=== PATIENT | female | born 1965 | race Caucasian/White ===

== ENCOUNTER 2019-12-03 14:18 | Inpatient (IN) | payer MEDICAID, SELFPAY ==
[2019-12-03 14:20] VITALS: BP 170/100; PULSE 104; PULSE 108; RESP 18; TEMP 36.4; O2SAT 98; O2SAT 99; BMI 19.1
--- NOTE | 2019-12-03 14:37 | CT_ITS ---
STUDY: CT ABDOMEN AND PELVIS WITHOUT CONTRAST REASON FOR EXAM: Female, 54 years old. MID TO LOWER BACK PAIN RADIATING TO BACK, N/V X 2 WKS, PREV PANCREATIC CYSTS REMOVED RADIATION DOSAGE (If Supplied By Facility): CTDIvol = ( 6.04 ) mGy, DLP = ( 299 ) mGycm TECHNIQUE: Transaxial images were obtained from the dome of the diaphragm to the symphysis pubis without oral contrast, and without intravenous contrast. Sagittal and coronal images were reconstructed. Individualized dose optimization techniques were used for this CT. COMPARISON: None. FINDINGS: The visualized lung bases are unremarkable. The visualized portions of the heart are within normal limits. The liver is enlarged, and heterogeneous with low-density fatty infiltration. There is also suggestive of infiltrative pattern in the liver concerning for metastasis though this is difficult to fully evaluate without IV contrast. Normal gallbladder and extrahepatic biliary system. Normal spleen. Within the pancreatic head is a worrisome poorly defined hypodense mass measuring 1.4 x 2 cm. Additionally, there is dilatation of the pancreatic duct in the head and mid body of the pancreas though not in the tail. There is a 1.5 cm low-density left adrenal nodule. Given the findings in the liver this should be considered a metastasis until proven otherwise. The right adrenal is unremarkable. No obstructive uropathy, there is a punctate nonobstructing stone in the left kidney measuring 2 mm. Normal visualized stomach. Normal small intestine. Scattered colonic diverticulosis is noted. There is a caliber change in the colon best seen between axial images 122 and 135 and an underlying lesion needs to be excluded. No demonstrated perforation or abscess. The appendix is visualized and appears normal. Appendix best seen on coronal recon image 46 Normal abdominal aorta. Normal inferior vena cava. There is diffuse nonspecific induration of the mesenteric and retroperitoneal fat. Additionally, there are scattered borderline enlarged periaortic lymph nodes the largest seen on axial image 70 measures slightly greater than 1 cm Normal urinary bladder. Uterus is still present, the endometrium cannot be accurately evaluated with CT. No suspicious cystic mass or free fluid. Normal abdominal wall. There are diffuse degenerative changes of the visualized lumbar spine, and pelvis. CT/Abdomen/Pelvis without Cont IMPRESSION: Enlarged fatty liver with infiltrative heterogeneous appearance. This is suggestive of metastasis though without IV contrast is difficult to accurately evaluate. Worrisome 1.4 x 2 cm low-density lesion in the head of the pancreas likely responsible for mild pancreatic ductal dilatation in the head and mid body. Nonspecific but concerning induration of the mesenteric and retroperitoneal fat. There are multiple overlying enlarged retroperitoneal lymph nodes. Suspicious 1.5 cm low-density nodule in the left adrenal gland Colonic diverticulosis with nonspecific submucosal thickening and caliber change at the junction of the distal descending and sigmoid colon, no abscess or perforation noted but these findings are concerning for neoplastic process. Nonobstructing left nephrolithiasis Degenerative bony changes Uterus is still present, the endometrium cannot be accurately evaluated with CT Electronically Signed: Rod Fields MD at 15:28 EDT , Service support ,
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
[2019-12-03] MEDS: Ondansetron 4 MG/2 ML Vial IV ×2 (14:53→19:47)
[2019-12-03] MEDS: Morphine 4 MG/ML Syringe IV (14:53)
[2019-12-03] MEDS: 0.9% Normal Saline 1,000 ML 150 ML IV (14:57)
[2019-12-03 15:10] LABS: Red Blood Cells-Urine 0 SEEN /hpf (0-5)
[2019-12-03 15:13] LABS: Absolute Lymphocyte Count 1.56 X10^3/uL (0.83-4.51); Absolute Neutrophil Count 6.1 X10^3/uL (2.0-7.7); Basophil# 0.07 X10^3/uL; Basophil% 0.8 % (0-1); Eosinophil# 0.06 X10^3/uL; Eosinophils% 0.7 % (0-5); Hematocrit 38.3 % (37-47); Hemoglobin 13.5 g/dL (12.0-15.0); Lymphocyte # 1.56 X10^3/ul (4.0); Lymphocyte % 18.5 % (19-41); Mean Corp Hgb Conc 35.2 g/dL (32-36); Mean Corpuscular Hgb 35.6 pg (27.0-32.0); Mean Corpuscular Volume 101.1 fL (81-99); Mean Platelet Vol. 9.8 fl (6.2-12.0); Monocyte# 0.54 X10^3/uL; Monocyte% 6.4 % (0-10); NRBC Flagged by Analyzer 0 % (0-5); Neutrophil # 6.14 X10^3/uL (2.7-7.7); Platelet Count 171 K/mm3 (150-450); RBC Distribution Width CV 12.3 % (11.6-14.6); RBC Distribution Width SD 45.7 fl (35.1-43.9); Red Blood Count 3.79 M/mm3 (4.2-5.4); White Blood Count 8.4 K/mm3 (4.4-11.0)
[2019-12-03 15:15] LABS: Color, Urine Yellow (Yellow); Glucose, Dipstick Normal (Normal); Ketone-Dipstick 50 mg/dl (Negative); Leukocyte Esterase-Dipstick 25 /ul (Negative); Nitrite-Dipstick Positive (Negative); Occult Blood-Urine 10 /ul (Negative); Protein-Dipstick 100 mg/dl (Negative); Specific Gravity, Urine 1.025 (1.002-1.030); Urine Clarity Cloudy (Clear); Urine Urobilinogen 1 mg/dl (Normal)
[2019-12-03 15:16] LABS: Urine Bilirubin Dipstick 1 mg/dL (Negative)
[2019-12-03 15:22] LABS: Mucous, Urine 2+ /hpf (<or=2+)
[2019-12-03 15:26] LABS: White Blood Cells 5-10 SEEN /hpf (0-5)
[2019-12-03 15:28] LABS: Hyaline Cast 0-5 SEEN /lpf (0-5); Squamous Epithelial Cells - UA 5-10 SEEN /hpf (5-10)
[2019-12-03 15:29] LABS: Bacteria 4+ /hpf (None Seen)
[2019-12-03 15:31] LABS: AST(SGOT) 183 U/L (15-37); Alanine Aminotransfer ALT/SGPT 75 U/L (13-56); Albumin, Serum 3.8 g/dL (3.2-5.0); Alkaline Phosphatase 215 U/L (45-117); Anion Gap 13 (5-15); BUN 10 mg/dL (7-18); BUN/Creat Ratio 14.9 RATIO (10-20); Bilirubin, Direct 0.32 mg/dL (0.00-0.30); Calcium,Total 9.8 mg/dL (8.5-10.1); Chloride 100 mmol/L (98-107); Creatinine, Serum 0.67 mg/dL (0.55-1.02); EST Glomerular Filtration Rate 97 mL/min (>60); Est Glom Filt Rate - Afr Amer 117 mL/min (>60); Globulin 5.1 g/dL (2.2-4.2); Glucose 111 mg/dL (74-106); Lipase 1013 U/L (73-393); Potassium 2.9 mmol/L (3.5-5.1); Protein, Total 8.9 g/dL (6.4-8.2); Sodium Level 138 mmol/L (136-145)
--- NOTE | 2019-12-03 15:56 | US_ITS ---
STUDY: ABDOMINAL ULTRASOUND - RIGHT UPPER QUADRANT REASON FOR VISIT: Female, 54 years old PANCREATITIS- PANCREAS LESION ON CT TECHNIQUE: Ultrasound evaluation of the right upper quadrant was performed with real-time and static gayle-scale imaging. TECHNICAL QUALITY: Adequate. COMPARISON: CT abdomen and pelvis 1506 hours. FINDINGS: Liver: The liver measures 19.4 cm. There is increased echogenicity consistent with fatty infiltration. A 4.0 x 3.8 x 1.5 cm zone of hypoechogenicity that may be sparing or neoplastic implant is interposed between the left lobe and pancreatic head. The bile ducts are within normal limits. There is hepatic color flow. The direction of portal flow is hepatopetal. There is no demonstrated mass lesion. Gallbladder: Normal distended gallbladder. The gallbladder wall measures 3 mm. There is a positive sonographic Kenyon''s sign. There is no pericholecystic fluid. There are no gallstones. Common Bile Duct (C.B.D.): The common bile duct measures 3 mm. Pancreas: Normal size of the visualized head, body and tail of the pancreas. There is normal echogenicity of the visualized pancreas. Hypodense pancreatic mass or cyst seen near the head/uncinate of the pancreas by CT is not well seen here. There may be mild ectasia of the pancreatic duct. Right Kidney: Normal size of the right kidney. The right kidney measures 12.9 x 6.2 x 4.3 cm. Normal renal cortex. The right cortex measures 1.4 cm. There is no demonstrated renal mass or cyst. Rounded 6 x 6 x 8 mm hyperechogenicity that may be a nonobstructing stone is seen near the mid pole. There is no right hydronephrosis. US/Abdomen Limited IMPRESSION: 1. Fatty infiltration of liver with a 4 cm zone of possible sparing or neoplastic deposit at the inferior margin of left lobe near the pancreatic head. 2. A positive sonographic Kenyon''s sign was elicited when scanning over the mildly distended gallbladder. No stones were seen. No striation of the gallbladder wall or pericholecystic fluid to clearly indicate acute cholecystitis. 3. Mild ectasia of the pancreatic duct. The rounded hypodense lesion at the pancreatic head/uncinate on CT is not identified here. One might consider further characterization of the liver and pancreas with MRI. 4. 8 mm nonobstructing stone in versus other focal hyper echogenicity, such as fatty deposit, at the midpole of the right kidney (no calcified stone was evident on CT). No hydronephrosis. Electronically Signed: Rod Magallon MD at 17:40 EDT , Service support ,
[2019-12-03] MEDS: HYDROmorphone 0.5 MG/0.5 ML SYRINGE IV ×3 (16:21→23:17)
[2019-12-03] MEDS: 0.9% Normal Saline 1,000 ML 999 ML IV (16:21)
[2019-12-03] MEDS: LORazepam 2 MG/ML Syringe 0.5 MG IV (17:08)
[2019-12-03] MEDS: Ceftriaxone 1 GM/50 ML BAG IV (17:08)
--- NOTE | 2019-12-03 18:15 | PCM.HP.STD ---
Problem List (1) Hypokalemia Status: Acute (2) Pancreatitis Status: Acute Qualifiers: Chronicity: acute Pancreatitis type: alcohol induced Acute pancreatitis complication: unspecified Qualified Code(s): K85.20 - Alcohol induced acute pancreatitis without necrosis or infection (3) Bowel wall thickening Status: Acute (4) Alcohol abuse Status: Chronic History of Present Illness Date of Admission: 12/03/19 Chief Complaint: Abdominal pain - 2 weeks The patient is a 54 year old F with past medical history of chronic alcohol use disorder, history of pancreatitis complicated by pancreatic abscess status post surgery 6 years ago who comes in with complaints of abdominal pain, nausea and vomiting that has been going on for 2 weeks. Pain is described as in the left upper quadrant, radiates to the right lower quadrant and to the back. It is dull in nature. This is worse when she eats or moves. It is relieved with alcohol. She has a history of alcohol use disorder and drinks about a pint of vodka a day. Admits to some subjective fever and chills. She last drank alcohol this morning and had an episode of vomiting. No hematemesis. No diarrhea or hematochezia. Vitals in the ED showed temperature 97.5 F, heart rate 104, blood pressure 170/100, respiratory rate was 18, SPO2 was 98% on room air. His admitting blood work showed a BC count of 8.4, hemoglobin 13.5, platelet 171, sodium 138, potassium 2.9, chloride 100, bicarbonate 25, BUN 10, creatinine 0.67. Bilirubin is 0.32, AST is 183, ALT is 75, ALP is 215, lipase is 1013. UA showed shows cloudy urine, nitrite positive, leukocyte 25, WBC 5-10, bacteria +4. CT scan of the abdomen and pelvis shows fatty liver with infiltrative heterogeneous appearance, suggestive of possible metastasis. There was 1.4 x 2 cm low-density lesion in the head of the pancreas. Multiple overlying enlarged retroperitoneal lymph node. Suspicious 1.5 cm low-density nodule in the left adrenal gland. Colonic diverticulosis with submucosal thickening in caliber change in the junction of the distal descending and sigmoid colon. Ultrasound shows fatty liver, possible neoplastic mass. 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 Denies: Weight Change Eyes: Denies: Blurred vision, Cataracts, Conjunctivae Inflammation, Pain, Vision Change HEENT: Denies: Difficulty Hearing, Difficulty Swallowing, Head Aches, Hearing Changes, Sinus Congestion, Sinus Drainage Cardiovascular: Denies: Chest Pain, Claudication, Orthopnea, Palpitations, Paroxysmal Noc. Dyspnea Respiratory: Denies: Cough, Hemoptysis, Shortness of breath at rest, Sputum production Gastrointestinal: Reports: Abdominal Pain, Nausea, Vomiting. Denies: Constipation, Hematemesis, Hematochezia Genitourinary: Denies: Dysuria, Frequency, Incontinence Gynecological: Denies: Breast symptoms Musculoskeletal: Denies: Joint Pain, Joint stiffness, Joint swelling, Joint Tenderness Skin: Denies: Rash, Wounds Neurological: Denies: Numbness, Tingling, Focal weakness Psychiatric: Denies: Anxiety, Depression, Homicidal Ideations, Suicidal Ideations Hematologic/ Lymphatic: Denies: Easy Bruising, Easy Bleeding VTE Information - Inpt Only VTE Present on Admission: No VTE Pharm Prophylaxis ordered?: Yes Patient Problems: Active and Suspected Problems Pancreatitis (Acute) Liver mass (Acute) Bowel wall thickening (Acute) Hypokalemia (Acute) - Physical Exam Vitals/I&O's: Vital Signs Temp Pulse Resp BP Pulse Ox 97.5 F L 108 H 18 170/100 H 99 12/03/19 14:20 12/03/19 14:20 12/03/19 14:20 12/03/19 14:20 12/03/19 14:20 Oxygen Delivery Method Room Air Weight: 52.2 kg Body Mass Index (BMI) 19.1 Intake and Output for Last 24 Hours 12/01/19 12/02/19 12/03/19 23:59 23:59 23:59 Intake Total 992.55 / 992.55 Balance 992.55 / 992.55 General: Alert, Oriented x3, Cooperative, No apparent distress HEENT: Atraumatic, PERRLA, EOMI, Normocephalic Oral: Moist Mucosa Neck: Supple Lungs: Clear to auscultation, Normal air movement Cardiovascular: Regular rate, Regular Rhythm, Normal S1, Normal S2, No murmurs Abdomen: Bowel Sounds Present, Soft, Tender - in LUQ, RLQ Extremities: No edema Skin: No rashes Musculoskeletal: No Tenderness to Palpation of Joints or Extremities Lymphatic: No Cervical, Supraclavicular, or Inguinal Adenopathy Neurological: Cranial nerves II-XII grossly intact, Neuro grossly intact Psych/Mental Status: Normal Affect, Appropriate Laboratory Results 12/03/19 15:00: WBC 8.4, RBC 3.79 L, Hgb 13.5, Hct 38.3, MCV 101.1 H, MCH 35.6 H, MCHC 35.2, RDW Std Deviation 45.7 H, RDW Coeff of Angel Luis 12.3, Plt Count 171, MPV 9.8, Immature Gran % (Auto) 0.600, Neut % (Auto) 73.0 H, Lymph % (Auto) 18.5 L, [place] % (Auto) 6.4, Eos % (Auto) 0.7, Baso % (Auto) 0.8, Absolute Neuts (auto) 6.1, Absolute Lymphs (auto) 1.56, Nucleated RBC % 0 12/03/19 15:00: Sodium 138, Potassium 2.9 L, Chloride 100, Carbon Dioxide 25.0, Anion Gap 13, BUN 10, Creatinine 0.67, Estim Creat Clear Calc 79.10, Est GFR (MDRD) Af Amer 117, Est GFR (MDRD) Non-Af 97, BUN/Creatinine Ratio 14.9, Glucose 111 H, Calcium 9.8, Total Bilirubin 0.60, Direct Bilirubin 0.32 H, AST 183 H, ALT 75 H, Alkaline Phosphatase 215 H, Total Protein 8.9 H, Albumin 3.8, Globulin 5.1 H, Lipase 1013 H 12/03/19 15:00: Urine Color Yellow, Urine Clarity Cloudy, Urine pH 5.0, Ur Specific [place] 1.025, Urine Protein 100 H, Urine Glucose (UA) Normal, Urine Ketones 50 H, Urine Occult Blood 10 H, Urine Nitrite Positive H, Urine Bilirubin 1 H, Urine Urobilinogen 1 H, Ur Leukocyte Esterase 25 H, Urine RBC 0 SEEN, Urine WBC 5-10 SEEN, Ur Squamous Epith Cells 5-10 SEEN, Urine Bacteria 4+, Hyaline Casts 0-5 SEEN, Urine Mucus 2+ Current Medications Sodium Chloride () 1,000 mls @ 150 mls/hr IV .[id number] [facility] Last Infusion: 12/03/19 16:21 Dose: 0 mls/hr Documented by: Assessment/Plan All Active Problems Pancreatitis (Acute) Pancreatitis (Acute) Liver mass (Acute) Bowel wall thickening (Acute) Hypokalemia (Acute) The patient is a 54 year old F with past medical history of chronic alcohol use disorder, history of pancreatitis complicated by pancreatic abscess status post surgery 6 years ago who comes in with complaints of abdominal pain, nausea and vomiting that has been going on for 2 weeks. 1. Acute alcohol-related pancreatitis, history of recurrent pancreatitis Admitting lipase was 1013 CT scan of abdomen and pelvis suggestive of possible pancreatic mass Will keep n.p.o., IV fluids, CT of the abdomen with IV and oral contrast (pancreatic protocol) General surgery consulted 2. Possible liver and pancreatic mass, suspicious for metastasis CT of the abdomen with IV and oral contrast (pancreatic protocol) ordered General surgery consulted 3. Possible colon CA, general surgery consulted Patient will need colonoscopy later 4. Hypokalemia, K 2.9, likely secondary to GI loss from #1 Will replace, recheck magnesium also 5. Chronic alcohol use disorder, drinks a pint of vodka every day Will put on withdrawal protocol, 6. DVT PPx- Lovenox SC 7. Code status - Full code Inpatient E&M: 74805 Init Hosp L3
--- NOTE | 2019-12-03 18:21 | NURSING ---
311 PAINTSIL PANCREATITIS, LIVER MASS, COLON MASS
[2019-12-03 18:29] VITALS: BP 170/79; PULSE 82; RESP 17; TEMP 36.7; O2SAT 97
[2019-12-03 19:12] VITALS: BMI 19.1; BMI 19.2
--- NOTE | 2019-12-03 19:12 | CT_ITS ---
STUDY: CT ABDOMEN AND PELVIS WITH AND WITHOUT CONTRAST REASON FOR EXAM: Female, 54 years old. ACUTE PANCREATITIS, ? PANCREATIC MASS -- HX:CHRONIC ALCOHOL USE,SURGERY FOR PANCREATIC ABSCESS 6 YRS AGO RADIATION DOSAGE (If Supplied By Facility): CTDIvol = ( 7.51 ) mGy, DLP = ( 750.48 ) mGycm TECHNIQUE: Transaxial images were obtained from the dome of the diaphragm to the symphysis pubis with oral contrast. IV 100mL [id number] was administered. Sagittal and coronal images were reconstructed. Individualized dose optimization techniques were used for this CT. COMPARISON: Noncontrast CT of abdomen and pelvis dated December 03, 2019 FINDINGS: Minimal atelectasis seen in the right lower lobe. Moderately enlarged diffusely fatty liver with some capsular retraction and atrophy noted in the right anterior lobe and a small amount of perihepatic ascites. No visualized mass or intrahepatic ductal dilatation. Small cyst at the inferior aspect of the head of the pancreas measures 1 cm and appears to represent a diverticulum or focal dilatation of the ampulla of vater. Mild pancreatic duct dilatation is seen throughout the parenchyma. No visualized mass of the pancreas. Mild peripancreatic inflammatory stranding is seen near the head neck junction and associated with subcentimeter lymphadenopathy. Mesenteric edema is present throughout the abdomen and pelvis. Small venous varices seen in the central vascular pedicle of the abdomen are compatible with portal vein hypertension. Normal gallbladder and extrahepatic biliary system. Normal spleen. There is symmetric enlargement of the adrenal glands suggesting adrenal hyperplasia. Normal right kidney. Normal left kidney. Normal visualized stomach. Normal small intestine. There are multiple colonic diverticula consistent with diverticulosis. The appendix is visualized and appears normal. There is diffuse atherosclerotic calcification of the abdominal aorta, without a demonstrated aneurysm. Normal inferior vena cava. Normal retroperitoneum. Normal urinary bladder. Grossly unremarkable uterus. Normal abdominal wall. There are diffuse degenerative changes of the visualized lumbar spine. CT/CT Abd/Pelvis W/WO Contrast IMPRESSION: 1. Moderate hepatomegaly and diffuse fatty liver where early signs of cirrhosis and the right lobe where there is retraction and a small amount of perihepatic ascites. 2. Portal vein hypertension 3. Small cyst at the inferior aspect of the head of the pancreas measures 1 cm and appears to represent a diverticulum or focal dilatation of the ampulla of Vater or old pseudocyst or parenchymal cysts. Mild pancreatic duct dilatation is seen throughout the parenchyma. 4. Mild peripancreatic inflammatory stranding is seen near the head neck junction and associated with subcentimeter lymphadenopathy. Acute on chronic pancreatitis is a possibility. 5. No visualized solid mass of the pancreas, do not favor malignancy at this time. If concerns persist obtain an MRI of the abdomen with the pancreatic protocol with and without contrast. 6. Colonic diverticulosis Electronically Signed: Shaun Awan MD at 22:48 EDT , Service support ,
[2019-12-03 19:26] VITALS: BP 179/64; PULSE 79; RESP 18; TEMP 36.7; O2SAT 96
[2019-12-03] MEDS: Phenobarbital 32.4 MG Tablet PO ×2 (19:47→23:17)
[2019-12-03] MEDS: Potassium Chloride 10mEq/100mL 10 MEQ/100 ML IV.SOLN. 100 MEQ IV BOLUS ×4 (19:51→23:52)
[2019-12-03 20:29] LABS: Magnesium 1.3 mg/dL (1.6-2.6)
[2019-12-03] MEDS: hydrOXYzine PAM 25 MG Capsule 50 MG PO (21:50)
[2019-12-03 22:30] VITALS: BP 179/64; PULSE 79
[2019-12-03] MEDS: hydrALAZINE 20 MG/ML Vial IV (22:30)
[2019-12-03 23:23] VITALS: BP 144/72; PULSE 93; RESP 18; TEMP 36.6; O2SAT 98
[2019-12-03] MEDS: 0.9% Saline Lock 10 ML Syringe IV (23:52)
[2019-12-04] VITALS (9 sets, daily range): BP systolic 147–172; BP diastolic 73–97; PULSE 89–100; RESP 14–18; TEMP 36.7–37.1; O2SAT 95–99
[2019-12-04] MEDS: 0.9% Normal Saline 1,000 ML 150 ML IV ×2 (03:13→11:07)
[2019-12-04] MEDS: Ondansetron 4 MG/2 ML Vial IV (03:17)
[2019-12-04] MEDS: HYDROmorphone 0.5 MG/0.5 ML SYRINGE IV ×4 (03:20→13:33)
[2019-12-04] MEDS: Phenobarbital 32.4 MG Tablet PO ×6 (03:23→23:32)
[2019-12-04 06:03] LABS: Absolute Lymphocyte Count 0.96 X10^3/uL (0.83-4.51); Absolute Neutrophil Count 6.2 X10^3/uL (2.0-7.7); Basophil# 0.04 X10^3/uL; Basophil% 0.5 % (0-1); Eosinophil# 0.05 X10^3/uL; Eosinophils% 0.6 % (0-5); Hematocrit 35.8 % (37-47); Hemoglobin 12.2 g/dL (12.0-15.0); Lymphocyte # 0.96 X10^3/ul (4.0); Lymphocyte % 12.2 % (19-41); Mean Corp Hgb Conc 34.1 g/dL (32-36); Mean Corpuscular Hgb 35.5 pg (27.0-32.0); Mean Corpuscular Volume 104.1 fL (81-99); Mean Platelet Vol. 9.7 fl (6.2-12.0); Monocyte# 0.53 X10^3/uL; Monocyte% 6.8 % (0-10); NRBC Flagged by Analyzer 0 % (0-5); Neutrophil # 6.23 X10^3/uL (2.7-7.7); Neutrophil % 79.4 % (47-70); Platelet Count 133 K/mm3 (150-450); RBC Distribution Width CV 12.8 % (11.6-14.6); Red Blood Count 3.44 M/mm3 (4.2-5.4); White Blood Count 7.9 K/mm3 (4.4-11.0)
[2019-12-04 06:36] LABS: ALB/GLOB Ratio 0.7 RATIO (0.9-2.4); AST(SGOT) 109 U/L (15-37); Alanine Aminotransfer ALT/SGPT 54 U/L (13-56); Albumin, Serum 3.1 g/dL (3.2-5.0); Alkaline Phosphatase 171 U/L (45-117); Anion Gap 11 (5-15); BUN 7 mg/dL (7-18); BUN/Creat Ratio 13.3 RATIO (10-20); Calcium,Total 8.2 mg/dL (8.5-10.1); Chloride 99 mmol/L (98-107); Creatinine, Serum 0.52 mg/dL (0.55-1.02); EST Glomerular Filtration Rate 129 mL/min (>60); Est Glom Filt Rate - Afr Amer 156 mL/min (>60); Estimated Creatinine Clearance 102.02 ml/min; Globulin 4.6 g/dL (2.2-4.2); Glucose 118 mg/dL (74-106); Protein, Total 7.7 g/dL (6.4-8.2); Sodium Level 134 mmol/L (136-145)
[2019-12-04] MEDS: hydrALAZINE 20 MG/ML Vial IV ×2 (07:32→23:39)
[2019-12-04] MEDS: Thiamine Hydrochloride 100 MG Tablet PO (07:49)
[2019-12-04] MEDS: Folic Acid 1 MG Tablet PO (07:49)
--- NOTE | 2019-12-04 07:51 | PCM.CONS.GEN ---
Reason for Consult Date of Consultation: 12/04/19 History of Present Illness: The patient is a 54 year old F presented to the ER due to abdominal pain, nausea and vomiting. Patient does have a history of pancreatitis with an abscess status post ex lap 7 years ago at [facility] by Dr. Landry per the patient. Patient does drink 1/5 of vodka 100% proof daily and has done so for a while. Patient's original CT abdomen pelvis did question changes in the liver as well as the pancreatic head questionable for malignancy as well as some thickening of the descending colon. Repeat CT with IV and p.o. contrast of the abdomen pelvis showed some hepatomegaly, early signs of cirrhosis the medial aspect of the right lobe, cyst at the head of the pancreas about 1 cm along with dilated pancreatic duct and some changes of pancreatitis, no concerns for thickening of the colon. Ultrasound of the abdomen did not show any gallstones or sludge, normal wall, positive Kenyon's however patient is having epigastric pain due to her her pancreatitis. Patient's lipase was 1000 on admission currently pending patient's LFTs were also elevated for his AST and ALT and alk phos they have improved a little bit this morning. Patient has never had a colonoscopy denies any family history of colon cancer. Past Medical History Past Medical History (Chronic Problems): Chronic Problems Alcohol abuse (Chronic) Allergies No Known Allergies Allergy (Verified 12/03/19 14:19) Home Medications: Ambulatory Orders Medication Instructions Recorded Esomeprazole Mag Trihydrate 20 mg PO DAILY 12/03/19 [Nexium] Surgical History: - - Pancreatic abscesses drained ex lap 7 years ago at [facility] by Dr. 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 Denies: Fever HEENT: Denies: Difficulty Swallowing Cardiovascular: Denies: Palpitations Respiratory: Denies: Shortness of breath at rest Gastrointestinal: Reports: Abdominal Pain, Nausea Genitourinary: Denies: Dysuria Neurological: Denies: Balance problems Hematologic/ Lymphatic: Denies: Easy Bruising Patient Problems: Active and Suspected Problems Pancreatitis (Acute) Liver mass (Acute) Bowel wall thickening (Acute) Hypokalemia (Acute) - Physical Exam Vitals/I&O's: Vital Signs Temp Pulse Resp BP Pulse Ox 98.0 F 89 18 172/97 H 97 12/04/19 07:28 12/04/19 07:32 12/04/19 07:28 12/04/19 07:28 12/04/19 07:28 Oxygen Delivery Method Room Air Weight: 118 lb 9.739 oz Body Mass Index (BMI) 19.1 Intake and Output for Last 24 Hours 12/02/19 12/03/19 12/04/19 23:59 23:59 23:59 Intake Total 2433.33 / 2433.33 405 / 405 Output Total 100 / 100 350 / 350 Balance 2333.33 / 2333.33 55 / 55 General: Alert, Oriented x3, Cooperative HEENT: Atraumatic Lungs: Normal air movement Cardiovascular: Regular rate Abdomen: Soft, Distended - Mild, Tender - Mainly epigastric/upper abdominal, voluntary guarding, rebound Extremities: No clubbing, No cyanosis, No edema Neurological: Cranial nerves II-XII grossly intact Psych/Mental Status: Anxious Laboratory Results 12/03/19 15:00: WBC 8.4, RBC 3.79 L, Hgb 13.5, Hct 38.3, MCV 101.1 H, MCH 35.6 H, MCHC 35.2, RDW Std Deviation 45.7 H, RDW Coeff of Angel Luis 12.3, Plt Count 171, MPV 9.8, Immature Gran % (Auto) 0.600, Neut % (Auto) 73.0 H, Lymph % (Auto) 18.5 L, [place] % (Auto) 6.4, Eos % (Auto) 0.7, Baso % (Auto) 0.8, Absolute Neuts (auto) 6.1, Absolute Lymphs (auto) 1.56, Nucleated RBC % 0 12/03/19 15:00: Sodium 138, Potassium 2.9 L, Chloride 100, Carbon Dioxide 25.0, Anion Gap 13, BUN 10, Creatinine 0.67, Estim Creat Clear Calc 79.10, Est GFR (MDRD) Af Amer 117, Est GFR (MDRD) Non-Af 97, BUN/Creatinine Ratio 14.9, Glucose 111 H, Calcium 9.8, Total Bilirubin 0.60, Direct Bilirubin 0.32 H, AST 183 H, ALT 75 H, Alkaline Phosphatase 215 H, Total Protein 8.9 H, Albumin 3.8, Globulin 5.1 H, Lipase 1013 H 12/03/19 15:00: Urine Color Yellow, Urine Clarity Cloudy, Urine pH 5.0, Ur Specific [place] 1.025, Urine Protein 100 H, Urine Glucose (UA) Normal, Urine Ketones 50 H, Urine Occult Blood 10 H, Urine Nitrite Positive H, Urine Bilirubin 1 H, Urine Urobilinogen 1 H, Ur Leukocyte Esterase 25 H, Urine RBC 0 SEEN, Urine WBC 5-10 SEEN, Ur Squamous Epith Cells 5-10 SEEN, Urine Bacteria 4+, Hyaline Casts 0-5 SEEN, Urine Mucus 2+ 12/03/19 15:00: Magnesium 1.3 L 12/04/19 05:50: WBC 7.9, RBC 3.44 L, Hgb 12.2, Hct 35.8 L, MCV 104.1 H, MCH 35.5 H, MCHC 34.1, RDW Std Deviation 48.0 H, RDW Coeff of Angel Luis 12.8, Plt Count 133 L, MPV 9.7, Immature Gran % (Auto) 0.500, Neut % (Auto) 79.4 H, Lymph % (Auto) 12.2 L, [place] % (Auto) 6.8, Eos % (Auto) 0.6, Baso % (Auto) 0.5, Absolute Neuts (auto) 6.2, Absolute Lymphs (auto) 0.96, Nucleated RBC % 0 12/04/19 05:50: Sodium 134 L, Potassium 3.0 L, Chloride 99, Carbon Dioxide 24.0, Anion Gap 11, BUN 7, Creatinine 0.52 L, Estim Creat Clear Calc 102.02, Est GFR (MDRD) Af Amer 156, Est GFR (MDRD) Non-Af 129, BUN/Creatinine Ratio 13.3, Glucose 118 H, Calcium 8.2 L, Total Bilirubin 0.60, AST 109 H, ALT 54, Alkaline Phosphatase 171 H, Total Protein 7.7, Albumin 3.1 L, Globulin 4.6 H, Albumin/Globulin Ratio 0.7 L Current Medications Dicyclomine HCl (Bentyl) 20 mg PO Q6H PRN PRN PRN Reason: abdominal discomfort Enoxaparin Sodium (Lovenox) 40 mg SC DAILY [facility] Folic Acid (Folic Acid) 1 mg PO DAILY@0800 [facility] Last Admin: 12/04/19 07:49 Dose: 1 mg Documented by: Gabapentin (Neurontin) 300 mg PO Q8H PRN PRN PRN Reason: moderate to severe anxiety Hydralazine HCl (Apresoline Iv) 20 mg IV Q6H PRN PRN PRN Reason: BLOOD PRESSURE Last Admin: 12/04/19 07:32 Dose: 20 mg Documented by: Hydromorphone HCl (Dilaudid Inj) 0.5 mg IV Q4H PRN PRN PRN Reason: Pain Score 6-10/10 Last Admin: 12/04/19 07:24 Dose: 0.5 mg Documented by: Hydroxyzine Pamoate (Vistaril Pamoate Capsule) 50 mg PO Q4H PRN PRN PRN Reason: mild anxiety Last Admin: 12/03/19 21:50 Dose: 50 mg Documented by: Sodium Chloride () 1,000 mls @ 150 mls/hr IV .[id number] [facility] Last Admin: 12/04/19 03:13 Dose: 150 mls/hr Documented by: Sodium Chloride () 250 mls @ 15 mls/hr IV .[id number] PRN PRN Reason: Saline Flush Sodium Chloride () 250 mls @ 15 mls/hr IV .[id number] PRN PRN Reason: Additional IVPB Infusion Pantoprazole Sodium 40 mg/ (Sodium Chloride) 110 mls @ 330 mls/hr IV Q12 [facility] Last Infusion: 12/03/19 22:10 Dose: Infused Documented by: Magnesium Sulfate () 4 gm in 100 mls @ 25 mls/hr IV X1 ONE Stop: 12/04/19 11:48 Loperamide HCl (Imodium) 2 mg PO Q4H PRN PRN PRN Reason: LOOSE STOOLS Nicotine (Nicoderm Cq (Pbkc)) 21 mg TRANSDERM. DAILY [facility] Last Admin: 12/03/19 19:49 Dose: Not Given Documented by: Nutritional Formula (Lactose Free) (Ensure Enlive) 120 ml PO 4X/DAY [facility] Last Admin: 12/03/19 21:57 Dose: Not Given Documented by: Ondansetron HCl (Zofran) 4 mg IV Q8H PRN PRN PRN Reason: NAUSEA/VOMITING Last Admin: 12/04/19 03:17 Dose: 4 mg Documented by: Ondansetron HCl (Zofran) 8 mg PO Q8H PRN PRN PRN Reason: NAUSEA Phenobarbital (Phenobarbital) 97.2 mg PO Q4H KATHRYN; Taper Stop: 12/08/19 03:29 Last Admin: 12/04/19 07:24 Dose: 97.2 mg Documented by: Potassium Chloride (K-Dur) 40 meq PO X1 ONE Stop: 12/04/19 07:51 Sodium Chloride () 10 - 40 ml IV UD PRN PRN Reason: SALINE FLUSH Last Admin: 12/03/19 23:52 Dose: 10 ml Documented by: Thiamine HCl (Vitamin B1) 100 mg PO DAILYCM KATHRYN Last Admin: 12/04/19 07:49 Dose: 100 mg Documented by: Trazodone HCl (Desyrel) 100 mg PO QHS PRN PRN Reason: INSOMNIA Assessment/Plan All Active Problems Pancreatitis (Acute) Pancreatitis (Acute) Liver mass (Acute) Bowel wall thickening (Acute) Hypokalemia (Acute) 54-year-old female with alcohol abuse, pancreatitis along with a history of pancreatitis, screening for colon cancer 1. Patient's pancreatitis likely due to alcohol abuse as patient has no gallstone or sludge in the gallbladder. 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 Did show discussed CT abdomen pelvis with the patient ensure that there are signs of cirrhosis on CAT scan also changes in her liver function likely due to alcohol as well and that it is very important for her to not continue drinking as she will cause further damage to her pancreas and liver. No plans for any surgical intervention. 2. Screening for colon cancer. I do think that the initial CT without contrast was an over read with the thickening of the colon as it is not distended so it is difficult to really say if there is any thickening. Repeat CT of with abdomen and pelvis with IV and p.o. did not question any thickening. However patient is over 50 no family history of colon cancer and would be due for screening colonoscopy as an outpatient once the pancreatitis has improved and hopefully patient has gotten help for her alcohol abuse. Martha Avery M.D. Pager: [phone] [facility] [address] [place] [address], Outpatient [place], [address] [place] [address] Office: [phone] Inpatient E&M: 25351 Init Hosp L2
[2019-12-04 08:05] LABS: Lipase 424 U/L (73-393)
[2019-12-04] MEDS: Magnesium Sulfate 4gm/100mL 4 GM/100 ML IV.SOLN. IV (08:40)
[2019-12-04] MEDS: Enoxaparin 40 MG/0.4 ML Syringe SC (08:58)
--- NOTE | 2019-12-04 13:22 | PCM.PROGNOTE ---
Patient Problems: Active and Suspected Problems Pancreatitis (Acute) Liver mass (Acute) Bowel wall thickening (Acute) Hypokalemia (Acute) Subjective: Patient seen and examined. Drowsy on exam. States abdominal pain is about half of what it was prior. Denies nausea, vomiting. Agreeable to [facility] consult however she is not feeling up to it at this time. - Physical Exam Vitals/I&O's: Vital Signs Temp Pulse Resp BP Pulse Ox 98.2 F 100 14 154/80 H 95 12/04/19 11:09 12/04/19 11:09 12/04/19 11:09 12/04/19 11:09 12/04/19 11:09 Oxygen Delivery Method Room Air Weight: 118 lb 9.739 oz Body Mass Index (BMI) 19.1 Intake and Output for Last 24 Hours 12/02/19 12/03/19 12/04/19 23:59 23:59 23:59 Intake Total 2433.33 / 2433.33 1730 / 1730 Output Total 100 / 100 1150 / 1150 Balance 2333.33 / 2333.33 580 / 580 General: Alert, Oriented x3, Cooperative HEENT: Atraumatic, PERRLA, EOMI, Normocephalic Neck: Supple, No JVD, Negative Carotid Bruits Lungs: Clear to auscultation, Normal air movement Cardiovascular: Regular rate, No murmurs Abdomen: Bowel Sounds Present, Soft, Non Tender Extremities: No clubbing, No cyanosis, No edema, Capillary Refill Less than 3 Seconds Skin: No rashes, No breakdown Musculoskeletal: No Tenderness to Palpation of Joints or Extremities Neurological: Cranial nerves II-XII grossly intact, Neuro grossly intact Psych/Mental Status: Normal Affect, Appropriate Microbiology Past 72 Hours 12/03/19 15:00 Urine, Clean Catch Urine Culture - Preliminary Gram negative rigo Laboratory Results 12/03/19 15:00: WBC 8.4, RBC 3.79 L, Hgb 13.5, Hct 38.3, MCV 101.1 H, MCH 35.6 H, MCHC 35.2, RDW Std Deviation 45.7 H, RDW Coeff of Angel Luis 12.3, Plt Count 171, MPV 9.8, Immature Gran % (Auto) 0.600, Neut % (Auto) 73.0 H, Lymph % (Auto) 18.5 L, [place] % (Auto) 6.4, Eos % (Auto) 0.7, Baso % (Auto) 0.8, Absolute Neuts (auto) 6.1, Absolute Lymphs (auto) 1.56, Nucleated RBC % 0 12/03/19 15:00: Sodium 138, Potassium 2.9 L, Chloride 100, Carbon Dioxide 25.0, Anion Gap 13, BUN 10, Creatinine 0.67, Estim Creat Clear Calc 79.10, Est GFR (MDRD) Af Amer 117, Est GFR (MDRD) Non-Af 97, BUN/Creatinine Ratio 14.9, Glucose 111 H, Calcium 9.8, Total Bilirubin 0.60, Direct Bilirubin 0.32 H, AST 183 H, ALT 75 H, Alkaline Phosphatase 215 H, Total Protein 8.9 H, Albumin 3.8, Globulin 5.1 H, Lipase 1013 H 12/03/19 15:00: Urine Color Yellow, Urine Clarity Cloudy, Urine pH 5.0, Ur Specific [place] 1.025, Urine Protein 100 H, Urine Glucose (UA) Normal, Urine Ketones 50 H, Urine Occult Blood 10 H, Urine Nitrite Positive H, Urine Bilirubin 1 H, Urine Urobilinogen 1 H, Ur Leukocyte Esterase 25 H, Urine RBC 0 SEEN, Urine WBC 5-10 SEEN, Ur Squamous Epith Cells 5-10 SEEN, Urine Bacteria 4+, Hyaline Casts 0-5 SEEN, Urine Mucus 2+ 12/03/19 15:00: Magnesium 1.3 L 12/04/19 05:50: WBC 7.9, RBC 3.44 L, Hgb 12.2, Hct 35.8 L, MCV 104.1 H, MCH 35.5 H, MCHC 34.1, RDW Std Deviation 48.0 H, RDW Coeff of Angel Luis 12.8, Plt Count 133 L, MPV 9.7, Immature Gran % (Auto) 0.500, Neut % (Auto) 79.4 H, Lymph % (Auto) 12.2 L, [place] % (Auto) 6.8, Eos % (Auto) 0.6, Baso % (Auto) 0.5, Absolute Neuts (auto) 6.2, Absolute Lymphs (auto) 0.96, Nucleated RBC % 0 12/04/19 05:50: Sodium 134 L, Potassium 3.0 L, Chloride 99, Carbon Dioxide 24.0, Anion Gap 11, BUN 7, Creatinine 0.52 L, Estim Creat Clear Calc 102.02, Est GFR (MDRD) Af Amer 156, Est GFR (MDRD) Non-Af 129, BUN/Creatinine Ratio 13.3, Glucose 118 H, Calcium 8.2 L, Total Bilirubin 0.60, AST 109 H, ALT 54, Alkaline Phosphatase 171 H, Total Protein 7.7, Albumin 3.1 L, Globulin 4.6 H, Albumin/Globulin Ratio 0.7 L 12/04/19 05:50: Lipase 424 H Current Medications Cephalexin (Keflex) 500 mg PO Q8 KATHRYN Dicyclomine HCl (Bentyl) 20 mg PO Q6H PRN PRN PRN Reason: abdominal discomfort Enoxaparin Sodium (Lovenox) 40 mg SC DAILY [facility] Last Admin: 12/04/19 08:58 Dose: 40 mg Documented by: Folic Acid (Folic Acid) 1 mg PO DAILY@0800 [facility] Last Admin: 12/04/19 07:49 Dose: 1 mg Documented by: Gabapentin (Neurontin) 300 mg PO Q8H PRN PRN PRN Reason: moderate to severe anxiety Hydralazine HCl (Apresoline Iv) 20 mg IV Q6H PRN PRN PRN Reason: BLOOD PRESSURE Last Admin: 12/04/19 07:32 Dose: 20 mg Documented by: Hydromorphone HCl (Dilaudid Inj) 0.5 - 1 mg IV Q2H PRN PRN PRN Reason: Pain Score 1-10/10 Last Admin: 12/04/19 08:38 Dose: 0.5 mg Documented by: Hydroxyzine Pamoate (Vistaril Pamoate Capsule) 50 mg PO Q4H PRN PRN PRN Reason: mild anxiety Last Admin: 12/03/19 21:50 Dose: 50 mg Documented by: Sodium Chloride () 1,000 mls @ 175 mls/hr IV .[id number] [facility] Last Infusion: 12/04/19 11:33 Dose: 175 mls/hr Documented by: Sodium Chloride () 250 mls @ 15 mls/hr IV .[id number] PRN PRN Reason: Saline Flush Sodium Chloride () 250 mls @ 15 mls/hr IV .[id number] PRN PRN Reason: Additional IVPB Infusion Pantoprazole Sodium 40 mg/ (Sodium Chloride) 110 mls @ 330 mls/hr IV Q12 [facility] Last Infusion: 12/04/19 10:05 Dose: Infused Documented by: Loperamide HCl (Imodium) 2 mg PO Q4H PRN PRN PRN Reason: LOOSE STOOLS Nicotine (Nicoderm Cq (Pbkc)) 21 mg TRANSDERM. DAILY [facility] Last Admin: 12/04/19 08:56 Dose: 21 mg Documented by: Nutritional Formula (Lactose Free) (Ensure Enlive) 120 ml PO 4X/DAY [facility] Last Admin: 12/04/19 11:08 Dose: Not Given Documented by: Ondansetron HCl (Zofran) 4 mg IV Q8H PRN PRN PRN Reason: NAUSEA/VOMITING Last Admin: 12/04/19 03:17 Dose: 4 mg Documented by: Ondansetron HCl (Zofran) 8 mg PO Q8H PRN PRN PRN Reason: NAUSEA Phenobarbital (Phenobarbital) 97.2 mg PO Q4H [facility]; Taper Stop: 12/08/19 03:29 Last Admin: 12/04/19 11:07 Dose: 97.2 mg Documented by: Sodium Chloride () 10 - 40 ml IV UD PRN PRN Reason: SALINE FLUSH Last Admin: 12/03/19 23:52 Dose: 10 ml Documented by: Thiamine HCl (Vitamin B1) 100 mg PO DAILYCM [facility] Last Admin: 12/04/19 07:49 Dose: 100 mg Documented by: Trazodone HCl (Desyrel) 100 mg PO QHS PRN PRN Reason: INSOMNIA Medical Necessity - Tobacco Use Smoking Status: Current every day smoker Tobacco Use: Cigarettes Assessment/Plan All Active Problems Pancreatitis (Acute) Pancreatitis (Acute) Liver mass (Acute) Bowel wall thickening (Acute) Hypokalemia (Acute) 1. Acute alcohol-related pancreatitis, history of recurrent pancreatitis-lipase improving. General surgery consulted due to abnormal CT, showing possible liver and pancreatic mass. Per general surgery, CT does show signs of cirrhosis. Pancreatic head cyst however no suspected mass. N.p.o. IV fluids. PRN pain regimen. General surgery recommending outpatient colonoscopy as well. 2. Hypokalemia-replace per protocol, trend BMP. 3. Chronic alcohol abuse-strongly encouraged cessation. [facility]. Continue folic acid, thiamine supplementation. Phenobarbital taper. 4. GERD-continue PPI. DVT prophylaxis-Lovenox subcu This patient was seen by JAMISON Solis under the supervision of Dr. Whittaker.
[2019-12-04] MEDS: Cephalexin 500 MG Capsule PO ×2 (13:33→22:17)
--- NOTE | 2019-12-04 14:45 | CASEMGMT ---
Social Work Note SW updated by REFINERY OPERATOR [employer]ATION [employer] that pt is agreeable to talking to [facility] tomorrow. Cassidy from [facility] is at [facility] and updated on referral. Saba Chung RESIDENTIAL RECYCLE DRIVER, TURNER SPLITTER MACHINE OPERATOR
--- NOTE | 2019-12-04 14:49 | CASEMGMT ---
RN CM Face to Face with patient for initial transition planning/care coordination assessment. RN CM introduced self and role at [facility]. Patient lying in bed, alert and oriented. Patient willing to participate in assessment and is able to answer all questions appropriately. Care providers, pharmacy, and demographics verified. Patient wishes to discharge home, denies need for home health at this time. Patient states she has no further needs or concerns at this time. CM to follow for discharge planning needs that may arise. PCP: None, CM to provide list to patient Specialists: none Preferred Pharmacy: [facility] Insurance: [employer] Prescription Benefit: yes Living Will/HPOA: none LNOK: daughter Living Arrangements: Patient lives with daughter in 2 story home. Patient states she is independent at home. Patient states she smoke cigarettes 1PPD and 1/5 of vodka daily. Patient states she is interested in quitting and would like resources. Freida of [facility] updated Transportation: self/daughter DME/HHC: Patient denies DME or previous HHC. Disposition Plan: Patient to discharge home with family support and follow-up plans in place. Saba OJEDA, RN, CM
[2019-12-04] MEDS: 0.9% Normal Saline 1,000 ML 175 ML IV ×2 (16:54→22:17)
[2019-12-04] MEDS: Dicyclomine 10 MG Capsule 20 MG PO (18:54)
[2019-12-04] MEDS: Morphine 2 MG/ML Syringe IV (20:47)
[2019-12-04] MEDS: 0.9% Saline Lock 10 ML Syringe IV ×2 (20:47→23:38)
[2019-12-05] VITALS (8 sets, daily range): BP systolic 130–162; BP diastolic 60–99; PULSE 89–96; RESP 16–18; TEMP 36.4–36.9; O2SAT 94–100
[2019-12-05] MEDS: 0.9% Saline Lock 10 ML Syringe IV ×5 (00:57→21:28)
[2019-12-05] MEDS: Morphine 2 MG/ML Syringe IV ×6 (00:57→21:28)
[2019-12-05] MEDS: Phenobarbital 32.4 MG Tablet PO ×6 (03:39→23:02)
[2019-12-05] MEDS: 0.9% Normal Saline 1,000 ML 175 ML IV ×2 (04:13→10:23)
[2019-12-05] MEDS: Cephalexin 500 MG Capsule PO (05:29)
[2019-12-05 06:07] LABS: Hematocrit 38.2 % (37-47); Hemoglobin 12.4 g/dL (12.0-15.0); Mean Corp Hgb Conc 32.5 g/dL (32-36); Mean Corpuscular Hgb 35.1 pg (27.0-32.0); Mean Corpuscular Volume 108.2 fL (81-99); Mean Platelet Vol. 9.6 fl (6.2-12.0); Platelet Count 138 K/mm3 (150-450); RBC Distribution Width CV 13.1 % (11.6-14.6); RBC Distribution Width SD 51.5 fl (35.1-43.9); Red Blood Count 3.53 M/mm3 (4.2-5.4); White Blood Count 7.7 K/mm3 (4.4-11.0)
[2019-12-05 06:40] LABS: ALB/GLOB Ratio 0.7 RATIO (0.9-2.4); AST(SGOT) 59 U/L (15-37); Alanine Aminotransfer ALT/SGPT 40 U/L (13-56); Albumin, Serum 2.9 g/dL (3.2-5.0); Alkaline Phosphatase 145 U/L (45-117); Anion Gap 10 (5-15); BUN 3 mg/dL (7-18); BUN/Creat Ratio 6.9 RATIO (10-20); Calcium,Total 7.6 mg/dL (8.5-10.1); Chloride 98 mmol/L (98-107); Creatinine, Serum 0.43 mg/dL (0.55-1.02); EST Glomerular Filtration Rate 161 mL/min (>60); Est Glom Filt Rate - Afr Amer 195 mL/min (>60); Estimated Creatinine Clearance 127.97 ml/min; Globulin 4.3 g/dL (2.2-4.2); Glucose 108 mg/dL (74-106); Lipase 494 U/L (73-393); Protein, Total 7.2 g/dL (6.4-8.2); Sodium Level 131 mmol/L (136-145)
[2019-12-05] MEDS: Thiamine Hydrochloride 100 MG Tablet PO (08:28)
[2019-12-05] MEDS: Folic Acid 1 MG Tablet PO (08:28)
--- NOTE | 2019-12-05 10:03 | CASEMGMT ---
RN ANGELA NOTE: Pt provided list of local PCP's, including list of those who accept [employer]. Adina OJEDA RN CM
[2019-12-05] MEDS: Enoxaparin 40 MG/0.4 ML Syringe SC (10:25)
--- NOTE | 2019-12-05 11:00 | NURSING ---
This RN rounded at beginning- shift change on patient and she was sleeping soundly with blanket over her head. Patient then called out requesting prn pain meds for pain rating 9/10. This RN entered room- pt had sleep lines on face from sleeping and verbal pain rating a 9/10 to upper abdomen and lower back and 5/10 to head. Non verbal pain rating 1/10. Pt has been calling out for prn morphine all night even prior to when it is due. Diet has been changed but pt refusing food so far this shift. Pt asked for prn morphine 2 hours after was given and this rn notified patient that doctor may order different pain medication if this is not working and maybe order orals. pt began backtracking and requesting doctor not be notified in order to keep morphine. Notified patient that doctor was already notified per her request and that we are waiting to see what his thoughts are. Pt verbalized understanding.
--- NOTE | 2019-12-05 12:02 | PCM.PROGNOTE ---
<Luz Clifton - Last Filed: 12/05/19 12:08> Patient Problems: Active and Suspected Problems Pancreatitis (Acute) Liver mass (Acute) Bowel wall thickening (Acute) Hypokalemia (Acute) Subjective: Patient seen and examined. Reports continued abdominal pain although improved. Denies nausea, vomiting. Denies withdrawal symptoms. Patient reports she is scared to return home due to history of withdrawal seizures. Discussed medical stabilization plan and that patient will not be discharged home until she is stable from withdrawal standpoint. - Physical Exam Vitals/I&O's: Vital Signs Temp Pulse Resp BP Pulse Ox 98.2 F 96 16 147/85 H 98 12/05/19 08:20 12/05/19 08:20 12/05/19 08:20 12/05/19 08:20 12/05/19 08:20 Oxygen Delivery Method Room Air Weight: 119 lb 7.849 oz Body Mass Index (BMI) 19.1 Intake and Output for Last 24 Hours 12/03/19 12/04/19 12/05/19 23:59 23:59 23:59 Intake Total 2433.33 / 2433.33 3807.08 / 4047.08 2524.58 / 2524.58 Output Total 100 / 100 2150 / 2150 Balance 2333.33 / 2333.33 1657.08 / 1897.08 2524.58 / 2524.58 General: Alert, Oriented x3, Cooperative HEENT: Atraumatic, PERRLA, EOMI, Normocephalic Neck: Supple, No JVD, Negative Carotid Bruits Lungs: Clear to auscultation, Normal air movement Cardiovascular: Regular rate, No murmurs Abdomen: Bowel Sounds Present, Soft, Non Tender Extremities: No edema, Capillary Refill Less than 3 Seconds Skin: No rashes, No breakdown Musculoskeletal: No Tenderness to Palpation of Joints or Extremities Neurological: Cranial nerves II-XII grossly intact, Neuro grossly intact Psych/Mental Status: Normal Affect, Appropriate Microbiology Past 72 Hours 12/03/19 15:00 Urine, Clean Catch Urine Culture - Final Escherichia coli Laboratory Results 12/05/19 05:54: WBC 7.7, RBC 3.53 L, Hgb 12.4, Hct 38.2, MCV 108.2 H, MCH 35.1 H, MCHC 32.5, RDW Std Deviation 51.5 H, RDW Coeff of Angel Luis 13.1, Plt Count 138 L, MPV 9.6 12/05/19 05:54: Sodium 131 L, Potassium 3.0 L, Chloride 98, Carbon Dioxide 23.0, Anion Gap 10, BUN 3 L, Creatinine 0.43 L, Estim Creat Clear Calc 127.97, Est GFR (MDRD) Af Amer 195, Est GFR (MDRD) Non-Af 161, BUN/Creatinine Ratio 6.9 L, Glucose 108 H, Calcium 7.6 L, Total Bilirubin 0.60, AST 59 H, ALT 40, Alkaline Phosphatase 145 H, Total Protein 7.2, Albumin 2.9 L, Globulin 4.3 H, Albumin/Globulin Ratio 0.7 L, Lipase 494 H Current Medications Cephalexin (Keflex) 500 mg PO Q8 [facility] Last Admin: 12/05/19 05:29 Dose: 500 mg Documented by: Dicyclomine HCl (Bentyl) 20 mg PO Q6H PRN PRN PRN Reason: abdominal discomfort Last Admin: 12/04/19 18:54 Dose: 20 mg Documented by: Enoxaparin Sodium (Lovenox) 40 mg SC DAILY [facility] Last Admin: 12/05/19 10:25 Dose: 40 mg Documented by: Folic Acid (Folic Acid) 1 mg PO DAILY@0800 [facility] Last Admin: 12/05/19 08:28 Dose: 1 mg Documented by: Gabapentin (Neurontin) 300 mg PO Q8H PRN PRN PRN Reason: moderate to severe anxiety Hydralazine HCl (Apresoline Iv) 20 mg IV Q6H PRN PRN PRN Reason: BLOOD PRESSURE Last Admin: 12/04/19 23:39 Dose: 20 mg Documented by: Hydroxyzine Pamoate (Vistaril Pamoate Capsule) 50 mg PO Q4H PRN PRN PRN Reason: mild anxiety Last Admin: 12/03/19 21:50 Dose: 50 mg Documented by: Sodium Chloride () 1,000 mls @ 175 mls/hr IV .[id number] [facility] Last Infusion: 12/05/19 11:00 Dose: 175 mls/hr Documented by: Sodium Chloride () 250 mls @ 15 mls/hr IV .[id number] PRN PRN Reason: Saline Flush Sodium Chloride () 250 mls @ 15 mls/hr IV .[id number] PRN PRN Reason: Additional IVPB Infusion Pantoprazole Sodium 40 mg/ (Sodium Chloride) 110 mls @ 330 mls/hr IV Q12 [facility] Last Infusion: 12/05/19 11:00 Dose: Infused Documented by: Loperamide HCl (Imodium) 2 mg PO Q4H PRN PRN PRN Reason: LOOSE STOOLS Morphine Sulfate () 2 mg IV Q4H PRN PRN PRN Reason: Pain Score 6-10/10 Last Admin: 12/05/19 08:30 Dose: 2 mg Documented by: Nicotine (Nicoderm Cq (Pbkc)) 21 mg TRANSDERM. DAILY [facility] Last Admin: 12/05/19 10:25 Dose: 21 mg Documented by: Nutritional Formula (Lactose Free) (Ensure Enlive) 120 ml PO 4X/DAY [facility] Last Admin: 12/05/19 08:29 Dose: Not Given Documented by: Ondansetron HCl (Zofran) 4 mg IV Q8H PRN PRN PRN Reason: NAUSEA/VOMITING Last Admin: 12/04/19 03:17 Dose: 4 mg Documented by: Ondansetron HCl (Zofran) 8 mg PO Q8H PRN PRN PRN Reason: NAUSEA Phenobarbital (Phenobarbital) 64.8 mg PO Q4H [facility]; Taper Stop: 12/08/19 03:29 Last Admin: 12/05/19 08:27 Dose: 64.8 mg Documented by: Potassium Chloride (K-Dur) 40 meq PO DAILYCM [facility] Sodium Chloride () 10 - 40 ml IV UD PRN PRN Reason: SALINE FLUSH Last Admin: 12/05/19 08:30 Dose: 10 ml Documented by: Thiamine HCl (Vitamin B1) 100 mg PO DAILYCM [facility] Last Admin: 12/05/19 08:28 Dose: 100 mg Documented by: Trazodone HCl (Desyrel) 100 mg PO QHS PRN PRN Reason: INSOMNIA Medical Necessity - Tobacco Use Smoking Status: Current every day smoker Tobacco Use: Cigarettes Assessment/Plan All Active Problems Pancreatitis (Acute) Pancreatitis (Acute) Liver mass (Acute) Bowel wall thickening (Acute) Hypokalemia (Acute) 1. Acute alcohol-related pancreatitis, history of recurrent pancreatitis-lipase improving. General surgery consulted due to abnormal CT, showing possible liver and pancreatic mass. Per general surgery, CT does show signs of cirrhosis. Pancreatic head cyst however no suspected mass. Advance diet. PRN pain regimen. General surgery recommending outpatient colonoscopy as well. 2. Hypokalemia-replace per protocol, trend BMP. 3. Acute E. coli UTI-IV Rocephin. 4. Chronic alcohol abuse-strongly encouraged cessation. Agreeable to [facility] consult. CIWA protocol. Continue folic acid, thiamine supplementation. Phenobarbital taper. 5. GERD-continue PPI. DVT prophylaxis-Lovenox subcu This patient was seen by JAMISON Solis under the supervision of Dr. Juarez. <Jose Alberto Juarez - Last Filed: 12/05/19 12:48> - Physical Exam Vitals/I&O's: Vital Signs Temp Pulse Resp BP Pulse Ox 36.8 C 96 16 147/85 H 98 12/05/19 08:20 12/05/19 08:20 12/05/19 08:20 12/05/19 08:20 12/05/19 08:20 Oxygen Delivery Method Room Air Weight: 54.2 kg Body Mass Index (BMI) 19.1 Intake and Output for Last 24 Hours 12/03/19 12/04/19 12/05/19 23:59 23:59 23:59 Intake Total 2433.33 / 2433.33 3807.08 / 4047.08 2574.58 / 2574.58 Output Total 100 / 100 2150 / 2150 1200 / 1200 Balance 2333.33 / 2333.33 1657.08 / 1897.08 1374.58 / 1374.58 General: Alert, Cooperative HEENT: Atraumatic, Normocephalic Neck: No Nodes, Trachea Midline Lungs: Clear to auscultation, Normal air movement, No rhonchi, No wheeze Cardiovascular: Regular rate, Regular Rhythm, Normal S1, Normal S2, No murmurs Abdomen: Non-Distended, Tender Extremities: No edema, No Calf Tenderness Skin: No rashes, No breakdown Neurological: Cranial nerves II-XII grossly intact, Neuro grossly intact Psych/Mental Status: Normal Affect, Appropriate Microbiology Past 72 Hours 12/03/19 15:00 Urine, Clean Catch Urine Culture - Final Escherichia coli Laboratory Results 12/05/19 05:54: WBC 7.7, RBC 3.53 L, Hgb 12.4, Hct 38.2, MCV 108.2 H, MCH 35.1 H, MCHC 32.5, RDW Std Deviation 51.5 H, RDW Coeff of Angel Luis 13.1, Plt Count 138 L, MPV 9.6 12/05/19 05:54: Sodium 131 L, Potassium 3.0 L, Chloride 98, Carbon Dioxide 23.0, Anion Gap 10, BUN 3 L, Creatinine 0.43 L, Estim Creat Clear Calc 127.97, Est GFR (MDRD) Af Amer 195, Est GFR (MDRD) Non-Af 161, BUN/Creatinine Ratio 6.9 L, Glucose 108 H, Calcium 7.6 L, Total Bilirubin 0.60, AST 59 H, ALT 40, Alkaline Phosphatase 145 H, Total Protein 7.2, Albumin 2.9 L, Globulin 4.3 H, Albumin/Globulin Ratio 0.7 L, Lipase 494 H Current Medications Dicyclomine HCl (Bentyl) 20 mg PO Q6H PRN PRN PRN Reason: abdominal discomfort Last Admin: 12/04/19 18:54 Dose: 20 mg Documented by: Enoxaparin Sodium (Lovenox) 40 mg SC DAILY [facility] Last Admin: 12/05/19 10:25 Dose: 40 mg Documented by: Folic Acid (Folic Acid) 1 mg PO DAILY@0800 [facility] Last Admin: 12/05/19 08:28 Dose: 1 mg Documented by: Gabapentin (Neurontin) 300 mg PO Q8H PRN PRN PRN Reason: moderate to severe anxiety Hydralazine HCl (Apresoline Iv) 20 mg IV Q6H PRN PRN PRN Reason: BLOOD PRESSURE Last Admin: 12/04/19 23:39 Dose: 20 mg Documented by: Hydroxyzine Pamoate (Vistaril Pamoate Capsule) 50 mg PO Q4H PRN PRN PRN Reason: mild anxiety Last Admin: 12/03/19 21:50 Dose: 50 mg Documented by: Sodium Chloride () 1,000 mls @ 125 mls/hr IV .Q8H [facility] Last Infusion: 12/05/19 11:00 Dose: 175 mls/hr Documented by: Sodium Chloride () 250 mls @ 15 mls/hr IV .[id number] PRN PRN Reason: Saline Flush Sodium Chloride () 250 mls @ 15 mls/hr IV .[id number] PRN PRN Reason: Additional IVPB Infusion Pantoprazole Sodium 40 mg/ (Sodium Chloride) 110 mls @ 330 mls/hr IV Q12 [facility] Last Infusion: 12/05/19 11:00 Dose: Infused Documented by: Ceftriaxone Sodium 2 gm/ (Sodium Chloride) 50 mls @ 100 mls/hr IV Q24 [facility] Loperamide HCl (Imodium) 2 mg PO Q4H PRN PRN PRN Reason: LOOSE STOOLS Morphine Sulfate () 2 mg IV Q4H PRN PRN PRN Reason: Pain Score 6-10/10 Last Admin: 12/05/19 08:30 Dose: 2 mg Documented by: Nicotine (Nicoderm Cq (Pbkc)) 21 mg TRANSDERM. DAILY [facility] Last Admin: 12/05/19 10:25 Dose: 21 mg Documented by: Nutritional Formula (Lactose Free) (Ensure Enlive) 120 ml PO 4X/DAY [facility] Last Admin: 12/05/19 08:29 Dose: Not Given Documented by: Ondansetron HCl (Zofran) 4 mg IV Q8H PRN PRN PRN Reason: NAUSEA/VOMITING Last Admin: 12/04/19 03:17 Dose: 4 mg Documented by: Ondansetron HCl (Zofran) 8 mg PO Q8H PRN PRN PRN Reason: NAUSEA Phenobarbital (Phenobarbital) 64.8 mg PO Q4H [facility]; Taper Stop: 12/08/19 03:29 Last Admin: 12/05/19 08:27 Dose: 64.8 mg Documented by: Potassium Chloride (K-Dur) 40 meq PO DAILYCM [facility] Sodium Chloride () 10 - 40 ml IV UD PRN PRN Reason: SALINE FLUSH Last Admin: 12/05/19 08:30 Dose: 10 ml Documented by: Thiamine HCl (Vitamin B1) 100 mg PO DAILYCM [facility] Last Admin: 12/05/19 08:28 Dose: 100 mg Documented by: Trazodone HCl (Desyrel) 100 mg PO QHS PRN PRN Reason: INSOMNIA Assessment/Plan Patient seen and examined independently. Data reviewed. I agree with the above note by the nurse practitioner. 1. Acute alcoholic pancreatitis lipase up slightly, though may skewed down given history prior pancreatitis advance diet 2. acute alcohol last drink 2 days ago drinks at least 750cc vodka/day continue with phenobarbital 3. E. coli UTI change to nitrofurantoin Inpatient E&M: 97688 Subs Hosp L2
--- NOTE | 2019-12-05 13:04 | ADDICTION ---
This script writer was contacted by Saba MUNOZ, regarding patient's desire to engage in AoD related services to address problematic alcohol use. This script writer visited with patient who declined assessment today but asked for program information and contact information for this script writer. This script writer provided contact information and a [employer] welcome packet to patient. This script writer will visit with patient tomorrow as a follow up to this meeting. Patient amiable.
[2019-12-05] MEDS: hydrALAZINE 20 MG/ML Vial IV (14:47)
--- NOTE | 2019-12-05 15:33 | NURSING ---
Patient requested that mother be updated but to not discuss alcohol or pancreatitis. This RN called mother Nicole at [phone] and updated her that patient is still in hospital, and doing well but will possibly be d/c'ed in the next few days. Mother thankful for information- denies further needs.
[2019-12-05] MEDS: Nitrofurantoin Macrocrystals 100 MG Capsule PO (17:12)
[2019-12-05] MEDS: 0.9% Normal Saline 1,000 ML 125 ML IV (17:13)
[2019-12-06] VITALS (7 sets, daily range): BP systolic 126–146; BP diastolic 71–81; PULSE 80–92; RESP 16; TEMP 36.6–37.1; O2SAT 97–98
[2019-12-06] MEDS: 0.9% Normal Saline 1,000 ML 125 ML IV ×3 (00:53→16:28)
[2019-12-06] MEDS: Morphine 2 MG/ML Syringe IV ×5 (01:40→20:25)
[2019-12-06] MEDS: 0.9% Saline Lock 10 ML Syringe IV ×3 (01:40→15:14)
[2019-12-06] MEDS: Phenobarbital 32.4 MG Tablet PO ×4 (03:34→20:38)
[2019-12-06 06:38] LABS: Anion Gap 8 (5-15); BUN 2 mg/dL (7-18); BUN/Creat Ratio 4.6 RATIO (10-20); Calcium,Total 7.8 mg/dL (8.5-10.1); Chloride 106 mmol/L (98-107); Creatinine, Serum 0.44 mg/dL (0.55-1.02); EST Glomerular Filtration Rate 159 mL/min (>60); Est Glom Filt Rate - Afr Amer 192 mL/min (>60); Estimated Creatinine Clearance 124.55 ml/min; Glucose 97 mg/dL (74-106); Lipase 361 U/L (73-393); Potassium 3.2 mmol/L (3.5-5.1); Sodium Level 138 mmol/L (136-145)
[2019-12-06] MEDS: Folic Acid 1 MG Tablet PO (07:38)
[2019-12-06] MEDS: Enoxaparin 40 MG/0.4 ML Syringe SC (07:38)
[2019-12-06] MEDS: Thiamine Hydrochloride 100 MG Tablet PO (07:38)
[2019-12-06] MEDS: Nitrofurantoin Macrocrystals 100 MG Capsule PO (07:39)
--- NOTE | 2019-12-06 10:27 | PCM.PN.HOSP ---
Patient Problems: Active and Suspected Problems Pancreatitis (Acute) Liver mass (Acute) Bowel wall thickening (Acute) Hypokalemia (Acute) Reason for Visit: pancreatitis Subjective: Still with abdominal and back pain, worse with eating. Overall, better. Vitals/I&O's: Vital Signs Temp Pulse Resp BP Pulse Ox 36.8 C 81 16 126/71 H 97 12/06/19 10:09 12/06/19 10:09 12/06/19 10:09 12/06/19 10:09 12/06/19 10:09 Oxygen Delivery Method Room Air Weight: 53.977 kg Body Mass Index (BMI) 19.1 Intake and Output for Last 24 Hours 12/04/19 12/05/19 12/06/19 23:59 23:59 23:59 Intake Total 3807.08 / 4047.08 4746.25 / 4746.25 1341.67 / 1341.67 Output Total 2150 / 2150 1200 / 1200 Balance 1657.08 / 1897.08 3546.25 / 3546.25 1341.67 / 1341.67 General: Alert, No apparent distress HEENT: Atraumatic, Normocephalic Oral: Moist Mucosa, No Gingival or Mucosal Lesions/ Ulcerations Neck: No Nodes, Thyroid Normal Size and Texture Lungs: Clear to auscultation, Normal air movement, No rhonchi, No wheeze, No rales Cardiovascular: Regular rate, Regular Rhythm, Normal S1, Normal S2, No murmurs Abdomen: Bowel Sounds Present, Soft, Non Tender, Non-Distended, No Hepato-splenomegaly Extremities: No edema, No Calf Tenderness Skin: No rashes, No breakdown Psych/Mental Status: Normal Affect, Appropriate Microbiology Past 72 Hours 12/03/19 15:00 Urine, Clean Catch Urine Culture - Final Escherichia coli Laboratory Results 12/06/19 06:00: Sodium 138, Potassium 3.2 L, Chloride 106, Carbon Dioxide 24.0, Anion Gap 8, BUN 2 L, Creatinine 0.44 L, Estim Creat Clear Calc 124.55, Est GFR (MDRD) Af Amer 192, Est GFR (MDRD) Non-Af 159, BUN/Creatinine Ratio 4.6 L, Glucose 97, Calcium 7.8 L, Lipase 361 12/06/19 06:00: Magnesium Pending Current Medications Dicyclomine HCl (Bentyl) 20 mg PO Q6H PRN PRN PRN Reason: abdominal discomfort Last Admin: 12/04/19 18:54 Dose: 20 mg Documented by: Enoxaparin Sodium (Lovenox) 40 mg SC DAILY [facility] Last Admin: 12/06/19 07:38 Dose: 40 mg Documented by: Folic Acid (Folic Acid) 1 mg PO DAILY@0800 [facility] Last Admin: 12/06/19 07:38 Dose: 1 mg Documented by: Gabapentin (Neurontin) 300 mg PO Q8H PRN PRN PRN Reason: moderate to severe anxiety Hydralazine HCl (Apresoline Iv) 20 mg IV Q6H PRN PRN PRN Reason: BLOOD PRESSURE Last Admin: 12/05/19 14:47 Dose: 20 mg Documented by: Hydroxyzine Pamoate (Vistaril Pamoate Capsule) 50 mg PO Q4H PRN PRN PRN Reason: mild anxiety Last Admin: 12/03/19 21:50 Dose: 50 mg Documented by: Sodium Chloride () 1,000 mls @ 125 mls/hr IV .Q8H [facility] Last Admin: 12/06/19 07:44 Dose: 125 mls/hr Documented by: Sodium Chloride () 250 mls @ 15 mls/hr IV .[id number] PRN PRN Reason: Saline Flush Sodium Chloride () 250 mls @ 15 mls/hr IV .[id number] PRN PRN Reason: Additional IVPB Infusion Pantoprazole Sodium 40 mg/ (Sodium Chloride) 110 mls @ 330 mls/hr IV Q12 [facility] Last Admin: 12/06/19 10:03 Dose: 330 mls/hr Documented by: Loperamide HCl (Imodium) 2 mg PO Q4H PRN PRN PRN Reason: LOOSE STOOLS Morphine Sulfate () 2 mg IV Q4H PRN PRN PRN Reason: Pain Score 6-10/10 Last Admin: 12/06/19 10:02 Dose: 2 mg Documented by: Nicotine (Nicoderm Cq (Pbkc)) 21 mg TRANSDERM. DAILY [facility] Last Admin: 12/06/19 07:37 Dose: 21 mg Documented by: Nitrofurantoin Macrocrystals (Macrobid) 100 mg PO DAILY@0800 [facility] Last Admin: 12/06/19 07:39 Dose: 100 mg Documented by: Nutritional Formula (Lactose Free) (Ensure Clear) 120 ml PO TIDCM [facility] Ondansetron HCl (Zofran) 4 mg IV Q8H PRN PRN PRN Reason: NAUSEA/VOMITING Last Admin: 12/04/19 03:17 Dose: 4 mg Documented by: Ondansetron HCl (Zofran) 8 mg PO Q8H PRN PRN PRN Reason: NAUSEA Phenobarbital (Phenobarbital) 64.8 mg PO Q6H [facility]; Taper Stop: 12/08/19 03:29 Last Admin: 12/06/19 10:01 Dose: 64.8 mg Documented by: Potassium Chloride (K-Dur) 40 meq PO DAILYCM [facility] Last Admin: 12/06/19 07:38 Dose: 40 meq Documented by: Sodium Chloride () 10 - 40 ml IV UD PRN PRN Reason: SALINE FLUSH Last Admin: 12/06/19 10:02 Dose: 10 ml Documented by: Thiamine HCl (Vitamin B1) 100 mg PO DAILYCM [facility] Last Admin: 12/06/19 07:38 Dose: 100 mg Documented by: Trazodone HCl (Desyrel) 100 mg PO QHS PRN PRN Reason: INSOMNIA STROKE Vital Signs/Narrative: Vital Signs Temp Pulse Resp BP Pulse Ox 12/06/19 10:09 36.8 C 81 16 126/71 H 97 Medical Necessity - Tobacco Use Smoking Status: Current every day smoker Tobacco Use: Cigarettes Assessment/Plan All Active Problems Pancreatitis (Acute) Pancreatitis (Acute) Liver mass (Acute) Bowel wall thickening (Acute) Hypokalemia (Acute) 1. Acute alcoholic pancreatitis lipase down, though may skewed down given history prior pancreatitis. Still symptomatic but I suspect patient has a likely chronic alcoholic pancreatitis and is unable to mount higher levels of lipase given the chronic pancreatitis. Clear diet 2. acute alcohol withdrawal last drink 3 days ago drinks at least 750cc vodka/day continue with phenobarbital taper 3. E. coli UTI change to nitrofurantoin through 12/07 4. hypokalemia replace check magnesium 5. VTE prophylaxis: LMWH Inpatient E&M: 42111 Subs Hosp L2
[2019-12-06 10:43] LABS: Magnesium 1.4 mg/dL (1.6-2.6)
[2019-12-06] MEDS: Ensure Clear 120 ML Liquid PO ×2 (12:20→16:27)
--- NOTE | 2019-12-06 14:18 | ADDICTION ---
This bid writer visited with patient in her room to encourage aftercare/discharge planning regarding problematic alcohol use. Patient stated that she is [facility] and will be in touch with this bid writer upon discharge. This bid writer verified that client had inforamtion related to services at [facility]. patient to follow up upon discharge.
[2019-12-06] MEDS: Pantoprazole Sodium 40 MG Tablet PO (20:38)
[2019-12-07] MEDS: Morphine 2 MG/ML Syringe IV ×3 (01:09→09:50)
[2019-12-07] MEDS: 0.9% Normal Saline 1,000 ML 125 ML IV ×2 (01:56→12:53)
[2019-12-07 02:00] VITALS: PULSE 83
[2019-12-07] MEDS: Phenobarbital 32.4 MG Tablet PO ×2 (03:29→09:58)
[2019-12-07 03:31] VITALS: BP 119/67; PULSE 81; RESP 16; TEMP 36.7; O2SAT 96
[2019-12-07 03:33] VITALS: BP 119/67; PULSE 81; RESP 16; TEMP 36.8; O2SAT 96
[2019-12-07 05:45] LABS: Anion Gap 7 (5-15); BUN 3 mg/dL (7-18); BUN/Creat Ratio 7.1 RATIO (10-20); Calcium,Total 7.8 mg/dL (8.5-10.1); Chloride 105 mmol/L (98-107); Creatinine, Serum 0.42 mg/dL (0.55-1.02); EST Glomerular Filtration Rate 167 mL/min (>60); Est Glom Filt Rate - Afr Amer 202 mL/min (>60); Estimated Creatinine Clearance 130.48 ml/min; Glucose 91 mg/dL (74-106); Lipase 362 U/L (73-393); Potassium 2.9 mmol/L (3.5-5.1); Sodium Level 137 mmol/L (136-145)
[2019-12-07] MEDS: Ensure Clear 120 ML Liquid PO ×2 (08:18→12:54)
[2019-12-07] MEDS: Nitrofurantoin Macrocrystals 100 MG Capsule PO (08:19)
[2019-12-07] MEDS: Folic Acid 1 MG Tablet PO (08:19)
[2019-12-07] MEDS: Thiamine Hydrochloride 100 MG Tablet PO (08:19)
[2019-12-07 08:26] VITALS: BP 134/81; PULSE 79; RESP 18; TEMP 36.7; O2SAT 96
[2019-12-07] MEDS: Potassium Chloride 10mEq/100mL 10 MEQ/100 ML IV.SOLN. 100 MEQ IV BOLUS ×4 (08:31→11:30)
[2019-12-07] MEDS: Magnesium Sulfate 4gm/100mL 4 GM/100 ML IV.SOLN. IV (08:41)
[2019-12-07] MEDS: 0.9% Saline Lock 10 ML Syringe IV ×2 (09:51→12:54)
[2019-12-07] MEDS: Pantoprazole Sodium 40 MG Tablet PO (09:59)
[2019-12-07] MEDS: Enoxaparin 40 MG/0.4 ML Syringe SC (10:00)
--- NOTE | 2019-12-07 14:20 | PCM.DC ---
- Discharge Diagnoses Current Active Problems: Current Active and Chronic Problems Pancreatitis (Acute) Liver mass (Acute) Bowel wall thickening (Acute) Hypokalemia (Acute) Alcohol abuse (Chronic) You will use the following diet at home:: No restrictions Your food should be the consistency of: Regular Your liquids should be the consistency of: Regular/Thin Call your doctor if you observe: Fever of 101 or Higher, Shortness of breath Allergies/Adverse Reactions: Allergies No Known Allergies Allergy (Verified 12/03/19 14:19) Medications to take at Discharge Esomeprazole Mag Trihydrate [Nexium] 20 mg PO DAILY 12/03/19 Acetaminophen 1,000 mg PO TID PRN #1 tablet 12/07/19 Ibuprofen [Ibu-200] 3 - 4 tab PO Q8H PRN #1 tablet 12/07/19 Multivitamin 1 each PO DAILY #1 tablet 12/07/19 Nitrofurantoin Macrocrystals [Macrobid] 100 mg PO DAILY@0800 #2 cap 12/07/19 Ondansetron [Zofran] 8 mg PO Q8H PRN PRN #20 tab 12/07/19 The following prescriptions were given: Acetaminophen 1,000 mg PO TID PRN #1 tablet PRN Reason: pain Ibuprofen [Ibu-200] 3 - 4 tab PO Q8H PRN #1 tablet PRN Reason: Pain Or Fever Nitrofurantoin Macrocrystals [Macrobid] 100 mg PO DAILY@0800 #2 cap Transmission Status: Pending to [facility] Multivitamin 1 each PO DAILY #1 tablet Ondansetron [Zofran] 8 mg PO Q8H PRN PRN #20 tab PRN Reason: nausea vomiting Transmission Status: Pending to [facility] Primary Care Physician: NOT,DEFINED [NON-STAFF] - Please follow up with your Primary Care Physician in: follow up with a PCP in 2-4 weeks Test Results: Test results from this visit will be discussed in further detail at your follow-up appointment, if applicable. Please Follow Up With: 180 When: next week Proposed Discharge Date: 12/07/19
--- NOTE | 2019-12-07 14:21 | PCM.DC.SUM ---
Discharge Date and Diagnosis - Problem List Patient Problems: Active and Suspected Problems Pancreatitis (Acute) Bowel wall thickening (Acute) Hypokalemia (Acute) Date of Admission: 12/03/19 Date of Discharge: 12/07/19 - Primary Discharge Diagnosis Acute Problems: Active Problems 1. Acute alcoholic pancreatitis lipase down, though may skewed down given history prior pancreatitis. Still symptomatic but I suspect patient has a likely chronic alcoholic pancreatitis and is unable to mount higher levels of lipase given the chronic pancreatitis. Clear diet 2. acute alcohol withdrawal last drink 3 days ago drinks at least 750cc vodka/day continue with phenobarbital taper 3. E. coli UTI change to nitrofurantoin through 12/07 4. hypokalemia replace check magnesium - Secondary Discharge Diagnosis Chronic Problems: Chronic Problems Alcohol abuse (Chronic) Hospital Course and Treatment Imaging Results: Clinical Impression(s) from Imaging Studies Abdomen/Pelvis CT 12/03/19 14:37 IMPRESSION: Enlarged fatty liver with infiltrative heterogeneous appearance. This is suggestive of metastasis though without IV contrast is difficult to accurately evaluate. Worrisome 1.4 x 2 cm low-density lesion in the head of the pancreas likely responsible for mild pancreatic ductal dilatation in the head and mid body. Nonspecific but concerning induration of the mesenteric and retroperitoneal fat. There are multiple overlying enlarged retroperitoneal lymph nodes. Suspicious 1.5 cm low-density nodule in the left adrenal gland Colonic diverticulosis with nonspecific submucosal thickening and caliber change at the junction of the distal descending and sigmoid colon, no abscess or perforation noted but these findings are concerning for neoplastic process. Nonobstructing left nephrolithiasis Degenerative bony changes Uterus is still present, the endometrium cannot be accurately evaluated with CT Electronically Signed: Rod Fields MD at 15:28 EDT , Service support , Abdomen Ultrasound 12/03/19 15:56 IMPRESSION: 1. Fatty infiltration of liver with a 4 cm zone of possible sparing or neoplastic deposit at the inferior margin of left lobe near the pancreatic head. 2. A positive sonographic Kenyon''s sign was elicited when scanning over the mildly distended gallbladder. No stones were seen. No striation of the gallbladder wall or pericholecystic fluid to clearly indicate acute cholecystitis. 3. Mild ectasia of the pancreatic duct. The rounded hypodense lesion at the pancreatic head/uncinate on CT is not identified here. One might consider further characterization of the liver and pancreas with MRI. 4. 8 mm nonobstructing stone in versus other focal hyper echogenicity, such as fatty deposit, at the midpole of the right kidney (no calcified stone was evident on CT). No hydronephrosis. Electronically Signed: Rod Magallon MD at 17:40 EDT , Service support , Abdomen/Pelvis CT 12/03/19 19:12 IMPRESSION: 1. Moderate hepatomegaly and diffuse fatty liver where early signs of cirrhosis and the right lobe where there is retraction and a small amount of perihepatic ascites. 2. Portal vein hypertension 3. Small cyst at the inferior aspect of the head of the pancreas measures 1 cm and appears to represent a diverticulum or focal dilatation of the ampulla of Vater or old pseudocyst or parenchymal cysts. Mild pancreatic duct dilatation is seen throughout the parenchyma. 4. Mild peripancreatic inflammatory stranding is seen near the head neck junction and associated with subcentimeter lymphadenopathy. Acute on chronic pancreatitis is a possibility. 5. No visualized solid mass of the pancreas, do not favor malignancy at this time. If concerns persist obtain an MRI of the abdomen with the pancreatic protocol with and without contrast. 6. Colonic diverticulosis Electronically Signed: Shaun Awan MD at 22:48 EDT , Service support , Operations: None Summary of Care Provided: The patient is a 54 year old F presents with abdominal pain. Patient was found to have acute pancreatitis based on imaging as well as elevated lipase. Patient states that she has had a history of pancreatitis related with alcohol. Patient drinks 1/5 of vodka per day. Is felt to be related with alcoholic pancreatitis. Patient had a CAT scan that showed some findings concerning for cirrhosis. Patient was treated supportively and her lipase did trend down but she is still having a lot of pain. I feel that the patient's normal level is actually lower than what would be for most patients given likely chronic pancreatitis. Today patient is overall feeling better and tolerated a bland diet. Recommend the patient continue with a bland diet and advance as tolerated. Patient will need to have a primary care physician and referral to a rhit as outpatient. Referral to a rhit would be necessary for evaluation of what may be cirrhosis. Patient was put on phenobarbital for alcohol withdrawal. Patient from a withdrawal standpoint did very well. Patient had been in contact with 180 and plan is to follow-up with them next week. [] Patient Problems: Active and Suspected Problems Pancreatitis (Acute) Bowel wall thickening (Acute) Hypokalemia (Acute) - Physical Exam Vitals/I&O's: Vital Signs Temp Pulse Resp BP Pulse Ox 36.7 C 79 18 134/81 H 96 12/07/19 08:26 12/07/19 08:26 12/07/19 08:26 12/07/19 08:26 12/07/19 08:26 Oxygen Delivery Method Room Air Weight: 58.9 kg Body Mass Index (BMI) 19.1 Intake and Output for Last 24 Hours 12/05/19 12/06/19 12/07/19 23:59 23:59 23:59 Intake Total 4746.25 / 4746.25 2951.67 / 3521.67 3866.66 / 3866.66 Output Total 1200 / 1200 900 / 900 Balance 3546.25 / 3546.25 2951.67 / 3021.67 2966.66 / 2966.66 General: Alert, No apparent distress HEENT: Atraumatic, Normocephalic Oral: Moist Mucosa, No Gingival or Mucosal Lesions/ Ulcerations Neck: No Nodes, Thyroid Normal Size and Texture Lungs: Clear to auscultation, Normal air movement, No rhonchi, No wheeze Cardiovascular: Regular rate, Regular Rhythm, Normal S1, Normal S2, No murmurs Abdomen: Bowel Sounds Present, Soft, Non-Distended, Tender Extremities: No clubbing, No edema Microbiology Past 72 Hours 12/03/19 15:00 Urine, Clean Catch Urine Culture - Final Escherichia coli Laboratory Results 12/07/19 05:24: Sodium 137, Potassium 2.9 L, Chloride 105, Carbon Dioxide 25.0, Anion Gap 7, BUN 3 L, Creatinine 0.42 L, Estim Creat Clear Calc 130.48, Est GFR (MDRD) Af Amer 202, Est GFR (MDRD) Non-Af 167, BUN/Creatinine Ratio 7.1 L, Glucose 91, Calcium 7.8 L, Lipase 362 Current Medications Dicyclomine HCl (Bentyl) 20 mg PO Q6H PRN PRN PRN Reason: abdominal discomfort Last Admin: 12/04/19 18:54 Dose: 20 mg Documented by: Enoxaparin Sodium (Lovenox) 40 mg SC DAILY [facility] Last Admin: 12/07/19 10:00 Dose: 40 mg Documented by: Folic Acid (Folic Acid) 1 mg PO DAILY@0800 [facility] Last Admin: 12/07/19 08:19 Dose: 1 mg Documented by: Gabapentin (Neurontin) 300 mg PO Q8H PRN PRN PRN Reason: moderate to severe anxiety Hydralazine HCl (Apresoline Iv) 20 mg IV Q6H PRN PRN PRN Reason: BLOOD PRESSURE Last Admin: 12/05/19 14:47 Dose: 20 mg Documented by: Hydroxyzine Pamoate (Vistaril Pamoate Capsule) 50 mg PO Q4H PRN PRN PRN Reason: mild anxiety Last Admin: 12/03/19 21:50 Dose: 50 mg Documented by: Sodium Chloride () 1,000 mls @ 125 mls/hr IV .Q8H [facility] Last Admin: 12/07/19 12:53 Dose: 125 mls/hr Documented by: Sodium Chloride () 250 mls @ 15 mls/hr IV .[id number] PRN PRN Reason: Saline Flush Last Admin: 12/07/19 08:36 Dose: 15 mls/hr Documented by: Sodium Chloride () 250 mls @ 15 mls/hr IV .[id number] PRN PRN Reason: Additional IVPB Infusion Loperamide HCl (Imodium) 2 mg PO Q4H PRN PRN PRN Reason: LOOSE STOOLS Morphine Sulfate () 2 mg IV Q4H PRN PRN PRN Reason: Pain Score 6-10/10 Last Admin: 12/07/19 09:50 Dose: 2 mg Documented by: Nicotine (Nicoderm Cq (Pbkc)) 21 mg TRANSDERM. DAILY [facility] Last Admin: 12/07/19 09:59 Dose: 21 mg Documented by: Nitrofurantoin Macrocrystals (Macrobid) 100 mg PO DAILY@0800 [facility] Last Admin: 12/07/19 08:19 Dose: 100 mg Documented by: Nutritional Formula (Lactose Free) (Ensure Clear) 120 ml PO TIDCM [facility] Last Admin: 12/07/19 12:54 Dose: 120 ml Documented by: Ondansetron HCl (Zofran) 4 mg IV Q8H PRN PRN PRN Reason: NAUSEA/VOMITING Last Admin: 12/04/19 03:17 Dose: 4 mg Documented by: Ondansetron HCl (Zofran) 8 mg PO Q8H PRN PRN PRN Reason: NAUSEA Pantoprazole Sodium (Protonix) 40 mg PO BID [facility] Last Admin: 12/07/19 09:59 Dose: 40 mg Documented by: Phenobarbital (Phenobarbital) 32.4 mg PO Q6H [facility]; Taper Stop: 12/08/19 03:29 Last Admin: 12/07/19 09:58 Dose: 32.4 mg Documented by: [facility] Last Admin: 12/07/19 08:18 Dose: 40 meq Documented by: Sodium Chloride () 10 - 40 ml IV UD PRN PRN Reason: SALINE FLUSH Last Admin: 12/07/19 12:54 Dose: 10 ml Documented by: [facility]iamine [facility] ([facility]itamin B1) [facility] Last Admin: 12/07/19 08:19 Dose: 100 mg Documented by: Trazodone HCl (Desyrel) 100 mg PO QHS PRN PRN Reason: INSOMNIA Discharge Diet: No Restrictions - bland, advance as tolerated. Call your doctor if you observe: Fever of 101 or Higher, Shortness of breath Home Medications: Medications to take at Discharge Esomeprazole Mag Trihydrate [Nexium] 20 mg PO DAILY 12/03/19 Acetaminophen 1,000 mg PO TID PRN #1 tablet 12/07/19 Ibuprofen [Ibu-200] 3 - 4 tab PO Q8H PRN #1 tablet 12/07/19 Multivitamin 1 each PO DAILY #1 tablet 12/07/19 Nitrofurantoin Macrocrystals [Macrobid] 100 mg PO DAILY@0800 #2 cap 12/07/19 Ondansetron [Zofran] 8 mg PO Q8H PRN PRN #20 tab 12/07/19 Following Prescrptions Were Given to Patient: Acetaminophen 1,000 mg PO TID PRN #1 tablet PRN Reason: pain Ibuprofen [Ibu-200] 3 - 4 tab PO Q8H PRN #1 tablet PRN Reason: Pain Or Fever Nitrofurantoin Macrocrystals [Macrobid] 100 mg PO DAILY@0800 #2 cap Transmission Status: Pending to [facility] Multivitamin 1 each PO DAILY #1 tablet Ondansetron [Zofran] 8 mg PO Q8H PRN PRN #20 tab PRN Reason: nausea vomiting Transmission Status: Pending to [facility] Primary Care Physician: NOT,DEFINED [NON-STAFF] - Please follow up with your Primary Care Physician in: follow up with a PCP in 2-4 weeks Please Follow Up With: [facility] When: next week Disposition: Home Minutes spent on discharge:: 32 Patient Condition:: Good Medical Necessity - Tobacco Use Smoking Status: Current every day smoker Tobacco Use: Cigarettes Meaningful Use Info Meaningful Use Diagnoses (Choose all that apply): None applicable Inpatient E&M: [id number] [facility]
[2019-12-07] MEDS: Ondansetron 8 MG Tablet PO (15:08)
[2019-12-07 15:30] VITALS: BP 140/87; PULSE 87; RESP 16; TEMP 36.7; O2SAT 100
== END 2019-12-07 15:39 | disposition home or self-care (01) | DRG 282 ==
LOC: ED 18:09 → MS3 18:19
PROVIDERS: Nurse Practitioner Family; Surgery; Admitting Provider Internal Medicine; Emergency Provider Emergency Medicine
DX: K85.20 Alcohol induced acute pancreatitis without necrosis or infection (principal); E87.6 Hypokalemia; F10.239 Alcohol dependence with withdrawal, unspecified; N39.0 Urinary tract infection, site not specified; B96.20 Unspecified Escherichia coli [E. coli] as the cause of diseases classified elsewhere; K86.0 Alcohol-induced chronic pancreatitis; K57.30 Diverticulosis of large intestine without perforation or abscess without bleeding; F17.210 Nicotine dependence, cigarettes, uncomplicated; K21.9 Gastro-esophageal reflux disease without esophagitis
CPT/HCPCS: 36415; 74176; 74178; 76705; 80048; 80053; 80076; 81001; 83690; 83735; 85025; 85027; 87077; 87086; 87088; 87186; 99251; 99285; 99406; J7030; J7050; Q9967; A4216; G0463; J2405

== ENCOUNTER 2020-01-21 23:26 | Inpatient (IN) | payer MEDICAID, SELFPAY ==
[2019-12-03 19:12] VITALS: BMI 19.1
[2020-01-21 22:02] VITALS: BMI 18.8
[2020-01-21 22:10] VITALS: BP 163/71; PULSE 71; RESP 16; TEMP 36.9; O2SAT 96
[2020-01-21] MEDS: 0.9% Normal Saline 1,000 ML 125 ML IV (22:25)
[2020-01-21] MEDS: 0.9% Saline Lock 10 ML Syringe IV (22:25)
[2020-01-21] MEDS: HYDROmorphone 1 MG/ML Syringe IV (22:25)
[2020-01-21] MEDS: Ondansetron 4 MG/2 ML Vial IV (22:25)
--- NOTE | 2020-01-21 23:15 | HP.PCM_ITS ---
Problem List (1) Pancreatitis Status: Acute Qualifiers: (2) Alcohol abuse Status: Chronic History of Present Illness Date of Admission: 01/21/20 Chief Complaint: abdominal pain The patient is a 54 year old significant past medical history of alcohol abuse presents the emergency room in [place] with abdominal pain patient last drank alcohol this morning states she had 1 shot of hard alcohol but was unable to keep it down due to her abdominal pain with nausea and vomiting. She now feels as if she is entering alcohol withdrawal with shakiness and confusion. She has had a history of doing this previously. Laboratory studies show a white blood cell count of 9.1, hemoglobin 13.9 hematocrit 40.1, platelets 263 elevated lipase of 93 and a BUN of 14 and creatinine was 0.51, scan impression reveals findings suspicious for duodenitis small amount of ascites, findings consistent with cirrhosis and confluent hepatic fibrosis with a new cystic lesion in the head of the pancreas measuring 1.6 cm which may represent pseudocyst follow-up CT in 6 months has been recommended, pancreatic duct dilatation, diverticulosis. Patient will be admitted for pancreatitis and alcohol withdrawal management. Past Medical History Past Medical History (Chronic Problems): Chronic Problems Alcohol abuse (Chronic) Allergies No Known Allergies Allergy (Verified 12/03/19 14:19) Home Medications: Ambulatory Orders Medication Instructions Recorded NK 01/21/20 Surgical History: - - Pancreatic abscesses drained ex lap 7 years ago at [facility] by Dr. 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 Denies: Chills, Fever, Weight Change HEENT: Denies: Head Aches, Sinus Congestion, Sinus Drainage Cardiovascular: Denies: Chest Pain, Palpitations Respiratory: Denies: Cough, Shortness of breath at rest, Sputum production Gastrointestinal: Reports: Abdominal Pain, Nausea, Vomiting Genitourinary: Denies: Dysuria Musculoskeletal: Denies: Joint Pain, Joint Tenderness Skin: Denies: Rash, Wounds Neurological: Denies: Numbness, Tingling, Focal weakness Psychiatric: Reports: Anxiety. Denies: Depression, Homicidal Ideations, Suicidal Ideations Hematologic/ Lymphatic: Denies: Easy Bruising, Easy Bleeding VTE Information - Inpt Only VTE Present on Admission: No VTE Mechan Device Prophylaxis: None VTE Pharm Prophylaxis ordered?: Yes - Physical Exam Vitals/I&O's: Vital Signs Temp Pulse Resp BP Pulse Ox 98.4 F 71 16 163/71 H 96 01/21/20 22:10 01/21/20 22:10 01/21/20 22:10 01/21/20 22:10 01/21/20 22:10 Oxygen Delivery Method Room Air Weight: 112 lb 14.027 oz Body Mass Index (BMI) 18.8 General: Alert, Cooperative, Confused HEENT: Atraumatic, Normocephalic Neck: Supple Lungs: Clear to auscultation, Normal air movement Cardiovascular: Regular rate, No murmurs Abdomen: Bowel Sounds Present, Guarding, Tender - ruq Extremities: No edema, Capillary Refill Less than 3 Seconds Skin: No rashes Musculoskeletal: No Tenderness to Palpation of Joints or Extremities Neurological: Neuro grossly intact Psych/Mental Status: Normal Affect, Appropriate Current Medications Hydromorphone HCl (Dilaudid Inj) 1 mg IV Q3H PRN PRN PRN Reason: Pain Score 6-10/10 Last Admin: 01/21/20 22:25 Dose: 1 mg Documented by: Sodium Chloride () 1,000 mls @ 125 mls/hr IV .Q8H [facility] Last Admin: 01/21/20 22:25 Dose: 125 mls/hr Documented by: Sodium Chloride () 250 mls @ 15 mls/hr IV .[id number] PRN PRN Reason: Saline Flush Sodium Chloride () 250 mls @ 15 mls/hr IV .[id number] PRN PRN Reason: Additional IVPB Infusion Ondansetron HCl (Zofran) 4 mg IV Q6H PRN PRN PRN Reason: NAUSEA/VOMITING Last Admin: 01/21/20 22:25 Dose: 4 mg Documented by: Sodium Chloride () 10 - 40 ml IV UD PRN PRN Reason: SALINE FLUSH Last Admin: 01/21/20 22:25 Dose: 10 ml Documented by: Assessment/Plan All Active Problems Pancreatitis (Acute) Pancreatitis (Acute) Liver mass (Acute) Bowel wall thickening (Acute) Hypokalemia (Acute) Plan 1. Acute pancreatitis?admit patient to general medical floor, make n.p.o., Dilaudid 1 mg IV every 3 hours as needed pain, Zofran 4 mg IV every 6 hours as needed nausea repeat lipase CMP and CBC in the morning 2. Alcohol withdrawal?Place patient on CIWA protocol 3. hold other medications 4. DVT prophylaxis- LMWH remind pt to get fu ct in [address] to [address] finding on pancreas OBSV E&M: [id number] Initial observation care L2
[2020-01-21] MEDS: LORazepam 2 MG/ML Syringe IV (23:49)
[2020-01-22] VITALS (9 sets, daily range): BP systolic 159–170; BP diastolic 74–88; PULSE 60–94; RESP 16–18; TEMP 36.4–37.3; O2SAT 93–99
[2020-01-22] MEDS: HYDROmorphone 1 MG/ML Syringe IV ×3 (01:28→10:26)
[2020-01-22] MEDS: Ondansetron 4 MG/2 ML Vial IV ×3 (04:28→21:00)
[2020-01-22] MEDS: LORazepam 2 MG/ML Syringe IV ×2 (05:32→15:12)
[2020-01-22] MEDS: 0.9% Normal Saline 1,000 ML 125 ML IV ×3 (05:32→22:48)
[2020-01-22 05:43] LABS: Absolute Lymphocyte Count 1.54 X10^3/uL (0.83-4.51); Absolute Neutrophil Count 5.3 X10^3/uL (2.0-7.7); Basophil# 0.04 X10^3/uL; Basophil% 0.5 % (0-1); Eosinophil# 0.04 X10^3/uL; Eosinophils% 0.5 % (0-5); Hematocrit 35.7 % (37-47); Hemoglobin 11.9 g/dL (12.0-15.0); Lymphocyte # 1.54 X10^3/ul (4.0); Lymphocyte % 20.6 % (19-41); Mean Corp Hgb Conc 33.3 g/dL (32-36); Mean Corpuscular Hgb 35.1 pg (27.0-32.0); Mean Corpuscular Volume 105.3 fL (81-99); Mean Platelet Vol. 9.3 fl (6.2-12.0); Monocyte# 0.52 X10^3/uL; NRBC Flagged by Analyzer 0 % (0-5); Neutrophil # 5.32 X10^3/uL (2.7-7.7); Neutrophil % 71.1 % (47-70); Platelet Count 195 K/mm3 (150-450); RBC Distribution Width CV 14.5 % (11.6-14.6); Red Blood Count 3.39 M/mm3 (4.2-5.4); White Blood Count 7.5 K/mm3 (4.4-11.0)
[2020-01-22 06:00] LABS: ALB/GLOB Ratio 0.7 RATIO (0.9-2.4); AST(SGOT) 58 U/L (15-37); Alanine Aminotransfer ALT/SGPT 34 U/L (13-56); Albumin, Serum 3.1 g/dL (3.2-5.0); Alkaline Phosphatase 141 U/L (45-117); Anion Gap 9 (5-15); BUN 12 mg/dL (7-18); BUN/Creat Ratio 20.2 RATIO (10-20); Calcium,Total 8.2 mg/dL (8.5-10.1); Chloride 107 mmol/L (98-107); Creatinine, Serum 0.59 mg/dL (0.55-1.02); EST Glomerular Filtration Rate 112 mL/min (>60); Est Glom Filt Rate - Afr Amer 136 mL/min (>60); Estimated Creatinine Clearance 88.11 ml/min; Globulin 4.3 g/dL (2.2-4.2); Glucose 97 mg/dL (74-106); Potassium 3.1 mmol/L (3.5-5.1); Protein, Total 7.4 g/dL (6.4-8.2); Sodium Level 140 mmol/L (136-145)
[2020-01-22] MEDS: Enoxaparin 40 MG/0.4 ML Syringe SC (08:00)
[2020-01-22 09:48] LABS: Magnesium 1.8 mg/dL (1.6-2.6)
[2020-01-22 09:54] LABS: Phosphorus 3.2 mg/dL (2.5-4.9)
[2020-01-22] MEDS: Potassium Chloride 10mEq/100mL 10 MEQ/100 ML IV.SOLN. 100 MEQ IV BOLUS ×4 (09:59→13:44)
--- NOTE | 2020-01-22 10:05 | CASEMGMT ---
Social Work Note Pt is at [facility] for Pancreatitis and ETOH Withdrawal. SW placed a call to Denny at [facility] and left message that pt will need to be seen. Saba Chung DISPLAY SPECIALIST, CMV DRIVER
[2020-01-22] MEDS: hydrALAZINE 20 MG/ML Vial 5 MG IV ×2 (10:36→18:11)
[2020-01-22] MEDS: LORazepam 1 MG Tablet 2 MG PO (12:12)
--- NOTE | 2020-01-22 13:17 | PCM.PN.HOSP ---
<Brayan Burr - Last Filed: 01/22/20 13:17> Reason for Visit: pancreatitis Subjective: ongoing epigastric abd pain and nausea. No fever/chills. No sob/cough Vitals/I&O's: Vital Signs Temp Pulse Resp BP Pulse Ox 97.7 F L 60 18 164/74 H 93 01/22/20 10:33 01/22/20 10:36 01/22/20 10:33 01/22/20 10:36 01/22/20 10:33 Oxygen Delivery Method Room Air Weight: 112 lb 14.027 oz Body Mass Index (BMI) 18.8 Intake and Output for Last 24 Hours 01/20/20 01/21/20 01/22/20 23:59 23:59 23:59 Intake Total 1089.58 / 1089.58 Balance 1089.58 / 1089.58 General: Alert, Oriented x3, Cooperative HEENT: Atraumatic, PERRLA, EOMI, Normocephalic Neck: Supple, No JVD, Negative Carotid Bruits Lungs: Clear to auscultation, Normal air movement Cardiovascular: Regular rate, No murmurs Abdomen: Soft, Hypoactive Bowel Sounds, Tender Extremities: No edema, Capillary Refill Less than 3 Seconds Skin: No rashes, No breakdown Musculoskeletal: No Tenderness to Palpation of Joints or Extremities Neurological: Cranial nerves II-XII grossly intact Psych/Mental Status: Normal Affect, Appropriate, Alert and oriented to time, place, person, mood and affect Laboratory Results 01/22/20 05:10: WBC 7.5, RBC 3.39 L, Hgb 11.9 L, Hct 35.7 L, MCV 105.3 H, MCH 35.1 H, MCHC 33.3, RDW Std Deviation 55.0 H, RDW Coeff of Angel Luis 14.5, Plt Count 195, MPV 9.3, Immature Gran % (Auto) 0.300, Neut % (Auto) 71.1 H, Lymph % (Auto) 20.6, [place] % (Auto) 7.0, Eos % (Auto) 0.5, Baso % (Auto) 0.5, Absolute Neuts (auto) 5.3, Absolute Lymphs (auto) 1.54, Nucleated RBC % 0 01/22/20 05:10: Sodium 140, Potassium 3.1 L, Chloride 107, Carbon Dioxide 24.0, Anion Gap 9, BUN 12, Creatinine 0.59, Estim Creat Clear Calc 88.11, Est GFR (MDRD) Af Amer 136, Est GFR (MDRD) Non-Af 112, BUN/Creatinine Ratio 20.2 H, Glucose 97, Calcium 8.2 L, Total Bilirubin 0.60, AST 58 H, ALT 34, Alkaline Phosphatase 141 H, Total Protein 7.4, Albumin 3.1 L, Globulin 4.3 H, Albumin/Globulin Ratio 0.7 L 01/22/20 05:10: Magnesium 1.8 01/22/20 05:10: Phosphorus 3.2 Current Medications Dicyclomine HCl (Bentyl) 20 mg PO Q6H PRN PRN PRN Reason: abdominal discomfort Enoxaparin Sodium (Lovenox) 40 mg SC DAILY [facility] Last Admin: 01/22/20 08:00 Dose: 40 mg Documented by: Folic Acid (Folic Acid) 1 mg PO DAILY@0800 [facility] Stop: 01/25/20 08:01 Gabapentin (Neurontin) 300 mg PO Q8H PRN PRN PRN Reason: moderate to severe anxiety Hydralazine HCl (Apresoline Iv) 5 mg IV Q6H PRN PRN PRN Reason: SBP>160 Last Admin: 01/22/20 10:36 Dose: 5 mg Documented by: Hydromorphone HCl (Dilaudid Inj) 1 mg IV Q3H PRN PRN PRN Reason: Pain Score 6-10/10 Last Admin: 01/22/20 10:26 Dose: 0.5 mg Documented by: Hydroxyzine Pamoate (Vistaril Pamoate Capsule) 50 mg PO Q4H PRN PRN PRN Reason: mild anxiety Sodium Chloride () 1,000 mls @ 125 mls/hr IV .Q8H [facility] Last Admin: 01/22/20 05:32 Dose: 125 mls/hr Documented by: Sodium Chloride () 250 mls @ 15 mls/hr IV .[id number] PRN PRN Reason: Saline Flush Sodium Chloride () 250 mls @ 15 mls/hr IV .[id number] PRN PRN Reason: Additional IVPB Infusion Potassium Chloride () 10 meq in 100 mls @ 100 mls/hr IV BOLUS Q1H [facility] Stop: 01/22/20 13:29 Last Admin: 01/22/20 12:20 Dose: 100 mls/hr Documented by: Loperamide HCl (Imodium) 2 mg PO Q4H PRN PRN PRN Reason: LOOSE STOOLS Lorazepam (Ativan) 2 mg PO Q2H PRN PRN; Protocol PRN Reason: CIWA score > 8 but <15 Last Admin: 01/22/20 12:12 Dose: 2 mg Documented by: Lorazepam (Ativan) 2 mg PO UD PRN; Protocol PRN Reason: CIWA score >/=15. Lorazepam (Ativan) 2 mg IV Q2H PRN PRN; Protocol PRN Reason: CIWA score > 8 but <15 Last Admin: 01/22/20 05:32 Dose: 2 mg Documented by: Lorazepam (Ativan) 2 mg IV UD PRN; Protocol PRN Reason: CIWA score >/=15. Ondansetron HCl (Zofran) 4 mg IV Q6H PRN PRN PRN Reason: NAUSEA/VOMITING Last Admin: 01/22/20 10:30 Dose: 4 mg Documented by: Ondansetron HCl (Zofran) 8 mg PO Q8H PRN PRN PRN Reason: NAUSEA Phenobarbital (Phenobarbital) 0 mg PO UD KATHRYN; Taper Stop: 01/26/20 21:14 Promethazine HCl (Phenergan) 12.5 mg IV Q6H PRN PRN PRN Reason: NAUSEA/VOMITING Sodium Chloride () 10 - 40 ml IV UD PRN PRN Reason: SALINE FLUSH Last Admin: 01/21/20 22:25 Dose: 10 ml Documented by: Thiamine HCl (Vitamin B1) 100 mg PO BIDCM [facility] Stop: 01/25/20 08:01 Trazodone HCl (Desyrel) 100 mg PO QHS PRN PRN Reason: INSOMNIA STROKE Vital Signs/Narrative: Vital Signs Temp Pulse Resp BP Pulse Ox 01/22/20 10:36 60 164/74 H 01/22/20 10:33 97.7 F L 60 18 164/74 H 93 Medical Necessity - Tobacco Use Smoking Status: Current every day smoker Tobacco Use: Cigarettes Assessment/Plan All Active Problems Pancreatitis (Acute) Pancreatitis (Acute) Liver mass (Acute) Bowel wall thickening (Acute) Hypokalemia (Acute) 1. Alcoholic pancreatitis - added phenobarb taper, 180 referral. Continue IV fluids and supportive care. Replace K and mag, check phos. Give thiamine/folate. CIWA protocol. 2. Macrocytic anemia - mild. check b12/folate/iron DVT ppx: lovenox DC plannin referral This patient was seen by Brayan Burr PA-C under the supervision of Doctor Chirag. <Shaheen Beard - Last Filed: 01/22/20 16:03> Reason for Visit: Acute on recurrent alcoholic pancreatitis, acute alcohol withdrawal Objective: Seen and examined. 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 She did not follow any doctor since then. She was last admitted between 12/02?12/07/19 for similar problem of acute alcoholic pancreatitis and alcohol withdrawal. Patient drinks 1/5 of vodka every day and not able to quit. CT abdomen from [place] [facility] reported as cirrhosis with small amount of ascites and features of duodenitis, confluent hepatic fibrosis and 1.6 cm cystic lesion in the head of pancreas probably pseudocyst. Patient has a history of upper GI bleed but denies esophageal banding or does not remember. Physical exam General: Alert, Oriented x3, Cooperative HEENT: Atraumatic, PERRLA, EOMI, Normocephalic Oral: No Gingival or Mucosal Lesions/ Ulcerations Neck: Supple, No JVD, Negative Carotid Bruits Lungs: Air entry diminished in bilateral lung bases. No crepitation/rhonchi. Cardiovascular: Regular rate, Regular Rhythm, Normal S1, Normal S2, No murmurs Abdomen: Tenderness present in epigastrium and right upper quadrant. Bowel Sounds Present, mild guarding in upper abdomen. Non-Distended : No renal angle tenderness. No suprapubic tenderness. Extremities: No edema, Capillary Refill Less than 3 Seconds Skin: No rashes, No breakdown Musculoskeletal: No Tenderness to Palpation of Joints or Extremities Neurological: Cranial nerves II-XII grossly intact, Deep Tendon Reflexes 2+/4 and Symmetrical, Neuro grossly intact Psych/Mental Status: Normal Affect, Appropriate. Vitals/I&O's: Vital Signs Temp Pulse Resp BP Pulse Ox 98.2 F 75 18 161/85 H 97 01/22/20 14:00 01/22/20 14:00 01/22/20 14:00 01/22/20 14:00 01/22/20 14:00 Oxygen Delivery Method Room Air Weight: 112 lb 14.027 oz Body Mass Index (BMI) 18.8 Intake and Output for Last 24 Hours 01/20/20 01/21/20 01/22/20 23:59 23:59 23:59 Intake Total 2289.58 / 2289.58 Balance 2289.58 / 2289.58 Laboratory Results 01/22/20 05:10: WBC 7.5, RBC 3.39 L, Hgb 11.9 L, Hct 35.7 L, MCV 105.3 H, MCH 35.1 H, MCHC 33.3, RDW Std Deviation 55.0 H, RDW Coeff of Angel Luis 14.5, Plt Count 195, MPV 9.3, Immature Gran % (Auto) 0.300, Neut % (Auto) 71.1 H, Lymph % (Auto) 20.6, [place] % (Auto) 7.0, Eos % (Auto) 0.5, Baso % (Auto) 0.5, Absolute Neuts (auto) 5.3, Absolute Lymphs (auto) 1.54, Nucleated RBC % 0 01/22/20 05:10: Sodium 140, Potassium 3.1 L, Chloride 107, Carbon Dioxide 24.0, Anion Gap 9, BUN 12, Creatinine 0.59, Estim Creat Clear Calc 88.11, Est GFR (MDRD) Af Amer 136, Est GFR (MDRD) Non-Af 112, BUN/Creatinine Ratio 20.2 H, Glucose 97, Calcium 8.2 L, Total Bilirubin 0.60, AST 58 H, ALT 34, Alkaline Phosphatase 141 H, Total Protein 7.4, Albumin 3.1 L, Globulin 4.3 H, Albumin/Globulin Ratio 0.7 L 01/22/20 05:10: Magnesium 1.8 01/22/20 05:10: Phosphorus 3.2 01/22/20 05:10: Iron 82, TIBC 563 H, Iron Saturation 14.6 L, Folate 13.70 Current Medications Dicyclomine HCl (Bentyl) 20 mg PO Q6H PRN PRN PRN Reason: abdominal discomfort Enoxaparin Sodium (Lovenox) 40 mg SC DAILY [facility] Last Admin: 01/22/20 08:00 Dose: 40 mg Documented by: Folic Acid (Folic Acid) 1 mg PO DAILY@0800 [facility] Stop: 01/25/20 08:01 Gabapentin (Neurontin) 300 mg PO Q8H PRN PRN PRN Reason: moderate to severe anxiety Hydralazine HCl (Apresoline Iv) 5 mg IV Q6H PRN PRN PRN Reason: SBP>160 Last Admin: 01/22/20 10:36 Dose: 5 mg Documented by: Hydromorphone HCl (Dilaudid Inj) 0.5 mg IV Q3H PRN PRN PRN Reason: Pain Score 6-1010 Last Admin: 01/22/20 13:52 Dose: 0.5 mg Documented by: Hydroxyzine Pamoate (Vistaril Pamoate Capsule) 50 mg PO Q4H PRN PRN PRN Reason: mild anxiety Sodium Chloride () 1,000 mls @ 125 mls/hr IV .Q8H [facility] Last Admin: 01/22/20 13:45 Dose: 125 mls/hr Documented by: Sodium Chloride () 250 mls @ 15 mls/hr IV .[id number] PRN PRN Reason: Saline Flush Sodium Chloride () 250 mls @ 15 mls/hr IV .[id number] PRN PRN Reason: Additional IVPB Infusion Magnesium Sulfate 2 gm/ Sodium (Chloride) 104 mls @ 52 mls/hr IV X1 ONE Stop: 01/22/20 15:59 Last Admin: 01/22/20 14:49 Dose: 52 mls/hr Documented by: Pantoprazole Sodium 40 mg/ (Sodium Chloride) 110 mls @ 330 mls/hr IV Q12 [facility]AT[facility] Loperamide HCl (Imodium) 2 mg PO Q4H PRN PRN PRN Reason: LOOSE STOOLS Lorazepam (Ativan) 2 mg PO Q2H PRN PRN; Protocol PRN Reason: CIWA score > 8 but <15 Last Admin: 01/22/20 12:12 Dose: 2 mg Documented by: Lorazepam (Ativan) 2 mg PO UD PRN; Protocol PRN Reason: CIWA score >/=15. Lorazepam (Ativan) 2 mg IV Q2H PRN PRN; Protocol PRN Reason: CIWA score > 8 but <15 Last Admin: 01/22/20 15:12 Dose: 2 mg Documented by: Lorazepam (Ativan) 2 mg IV UD PRN; Protocol PRN Reason: CIWA score >/=15. Nicotine (Nicoderm Cq (Pbkc)) 21 mg TRANSDERM. DAILY [facility] Last Admin: 01/22/20 13:52 Dose: 21 mg Documented by: Ondansetron HCl (Zofran) 4 mg IV Q6H PRN PRN PRN Reason: NAUSEA/VOMITING Last Admin: 01/22/20 10:30 Dose: 4 mg Documented by: Ondansetron HCl (Zofran) 8 mg PO Q8H PRN PRN PRN Reason: NAUSEA Phenobarbital (Phenobarbital) 97.2 mg PO Q4H KATHRYN; Taper Stop: 01/26/20 21:59 Last Admin: 01/22/20 13:52 Dose: 97.2 mg Documented by: Promethazine HCl (Phenergan) 12.5 mg IV Q6H PRN PRN PRN Reason: NAUSEA/VOMITING Last Admin: 01/22/20 15:12 Dose: 12.5 mg Documented by: Sodium Chloride () 10 - 40 ml IV UD PRN PRN Reason: SALINE FLUSH Last Admin: 01/21/20 22:25 Dose: 10 ml Documented by: Thiamine HCl (Vitamin B1) 100 mg PO BIDCM [facility] Stop: 01/25/20 08:01 Trazodone HCl (Desyrel) 100 mg PO QHS PRN PRN Reason: INSOMNIA STROKE Vital Signs/Narrative: Vital Signs Temp Pulse Resp BP Pulse Ox 01/22/20 14:00 98.2 F 75 18 161/85 H 97 Assessment/Plan This patient was seen in conjunction with Brayan RUBI. I have independently interviewed and examined the patient and reviewed pertinent history, examination findings, laboratory and plan of management. I have reviewed the note and agree with the documented findings with the few additional points. In brief, patient is admitted for acute on recurrent alcoholic pancreatitis along with acute alcohol withdrawal. [facility] medical chart reviewed. Lipase 93. Hemoglobin 13.9, leukocyte 9.1 thousand. Platelet count 263,000. CT abdomen from [facility] reported as cirrhosis with small amount of ascites and features of duodenitis, confluent hepatic fibrosis and 1.6 cm cystic lesion in the head of pancreas probably pseudocyst. 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 Started on Protonix 40 mg IV twice daily. H&H is stable. Patient has heavy alcohol use, tolerance and dependence. Started on phenobarbital along with other supportive medication for alcohol withdrawal medical stabilization. Consult 180 referral. CIWA protocol. Electrolytes monitoring and replacement as per protocol. Patient has chronic macrocytic anemia. Iron work-up is suggestive of iron deficiency anemia with iron saturation 14.6%. Folic acid normal. B12 ordered. I have discussed my assessment with Brayan RUBI and orders have been reviewed. Inpatient E&M: 60740 Subs Hosp L3
[2020-01-22] MEDS: HYDROmorphone 0.5 MG/0.5 ML SYRINGE IV ×2 (13:52→18:13)
[2020-01-22] MEDS: Phenobarbital 32.4 MG Tablet 64.8 MG PO ×3 (13:52→21:00)
[2020-01-22 14:19] LABS: Iron 82 ug/dL (50-170); Iron Binding Capacity,Total 563 ug/dL (250-450); PERCENT IRON SATURATION 14.6 % (15.0-55.0)
[2020-01-22] MEDS: proMETHazine 25 MG/ML Syringe 12.5 MG IV ×2 (15:12→22:57)
[2020-01-22 16:48] LABS: Ferritin 134 ng/mL (8-252)
[2020-01-22] MEDS: Ondansetron 8 MG Tablet PO (18:09)
[2020-01-22] MEDS: Thiamine Hydrochloride 100 MG Tablet PO (18:13)
[2020-01-22 18:31] LABS: Vitamin B12 463 pg/mL (211-911)
[2020-01-22] MEDS: Morphine 2 MG/ML Syringe IV (22:47)
[2020-01-23] VITALS (8 sets, daily range): BP systolic 155–178; BP diastolic 76–97; PULSE 77–101; RESP 16–18; TEMP 36.8–37; O2SAT 97–100
[2020-01-23] MEDS: traZODone 100 MG Tablet PO (00:12)
[2020-01-23] MEDS: hydrALAZINE 20 MG/ML Vial 5 MG IV ×3 (00:13→22:51)
[2020-01-23] MEDS: Phenobarbital 32.4 MG Tablet 64.8 MG PO ×6 (02:58→22:37)
[2020-01-23] MEDS: proMETHazine 25 MG/ML Syringe 12.5 MG IV ×3 (02:59→13:37)
[2020-01-23] MEDS: 0.9% Normal Saline 1,000 ML 125 ML IV ×3 (05:22→22:56)
[2020-01-23 06:30] LABS: Absolute Lymphocyte Count 1.31 X10^3/uL (0.83-4.51); Basophil# 0.03 X10^3/uL; Basophil% 0.3 % (0-1); Eosinophil# 0.03 X10^3/uL; Eosinophils% 0.3 % (0-5); Hematocrit 35.1 % (37-47); Hemoglobin 11.9 g/dL (12.0-15.0); Lymphocyte # 1.31 X10^3/ul (4.0); Lymphocyte % 14.9 % (19-41); Mean Corp Hgb Conc 33.9 g/dL (32-36); Mean Corpuscular Hgb 35.4 pg (27.0-32.0); Mean Corpuscular Volume 104.5 fL (81-99); Mean Platelet Vol. 9.5 fl (6.2-12.0); Monocyte# 0.45 X10^3/uL; Monocyte% 5.1 % (0-10); NRBC Flagged by Analyzer 0 % (0-5); Neutrophil # 6.95 X10^3/uL (2.7-7.7); Neutrophil % 78.9 % (47-70); Platelet Count 187 K/mm3 (150-450); RBC Distribution Width SD 53.3 fl (35.1-43.9); Red Blood Count 3.36 M/mm3 (4.2-5.4); White Blood Count 8.8 K/mm3 (4.4-11.0)
[2020-01-23] MEDS: Morphine 2 MG/ML Syringe IV ×5 (06:40→22:39)
[2020-01-23 07:17] LABS: ALB/GLOB Ratio 0.7 RATIO (0.9-2.4); AST(SGOT) 36 U/L (15-37); Alanine Aminotransfer ALT/SGPT 26 U/L (13-56); Alkaline Phosphatase 129 U/L (45-117); Anion Gap 13 (5-15); BUN 7 mg/dL (7-18); BUN/Creat Ratio 13.7 RATIO (10-20); Calcium,Total 8.2 mg/dL (8.5-10.1); Chloride 104 mmol/L (98-107); Creatinine, Serum 0.51 mg/dL (0.55-1.02); EST Glomerular Filtration Rate 133 mL/min (>60); Est Glom Filt Rate - Afr Amer 161 mL/min (>60); Estimated Creatinine Clearance 101.93 ml/min; Globulin 4.1 g/dL (2.2-4.2); Glucose 84 mg/dL (74-106); Lipase 372 U/L (73-393); Protein, Total 7.1 g/dL (6.4-8.2); Sodium Level 137 mmol/L (136-145)
[2020-01-23] MEDS: Ondansetron 4 MG/2 ML Vial IV ×2 (09:50→17:36)
[2020-01-23] MEDS: Enoxaparin 40 MG/0.4 ML Syringe SC (09:54)
[2020-01-23] MEDS: Thiamine Hydrochloride 100 MG Tablet PO ×2 (09:54→17:36)
[2020-01-23] MEDS: Folic Acid 1 MG Tablet PO (09:54)
--- NOTE | 2020-01-23 10:20 | CASEMGMT ---
AL MILLER Face to Face with patient for initial transition planning/care coordination assessment. AL MILLER introduced self and role at [facility]. Patient lying in bed, alert and oriented. Patient willing to participate in assessment and is able to answer all questions appropriately. Care providers, pharmacy, and demographics verified. Patient wishes to discharge home, denies need for home health at this time. Patient states she has no further needs or concerns at this time. CM to follow for discharge planning needs that may arise. PCP: No PCPANGELA to provide list of PCPs Specialists: none [facility]erred [facility]acy: [facility] Insurance: [employer] Prescription Benefit: yes Living Will/HPOA: none LNOK: daughter Living Arrangements: Patient lives with daughter in a 2 story home. Patient states she is independent at home. Transportation: self/daughter DME/HHC: Patient denies HHC or DME. Patient states she smokes 1 PPD of cigarettes and drinks 1/5th of vodka per day. Patient states she is interested in quitting. AL MILLER asked if patient would like resources from [facility]. Patient states she would like resources. AL MILLER updated [facility] Chung. Disposition Plan: Patient to discharge home with family support and follow-up plans in place. Saba OJEDA, RN, CM
--- NOTE | 2020-01-23 13:22 | PCM.PN.HOSP ---
<Brayan Burr - Last Filed: 01/23/20 13:22> Reason for Visit: Pancreatitis. Subjective: Pain somewhat improved. Nausea this AM no vomiting. pt would like to try liquids. No fever/chills. No cough/sob. Upper extremity tremor improved. Vitals/I&O's: Vital Signs Temp Pulse Resp BP Pulse Ox 98.5 F 82 18 166/81 H 98 01/23/20 09:47 01/23/20 09:52 01/23/20 09:47 01/23/20 09:47 01/23/20 09:47 Oxygen Delivery Method Room Air Weight: 112 lb 14.027 oz Body Mass Index (BMI) 18.8 Intake and Output for Last 24 Hours 01/21/20 01/22/20 01/23/20 23:59 23:59 23:59 Intake Total 3663.58 / 3693.58 1651.67 / 1651.67 Output Total 100 / 100 Balance 3663.58 / 3693.58 1551.67 / 1551.67 General: Alert, Oriented x3, Cooperative HEENT: Atraumatic, PERRLA, EOMI, Normocephalic Neck: Supple, No JVD, Negative Carotid Bruits Lungs: Clear to auscultation, Normal air movement Cardiovascular: Regular rate, No murmurs Abdomen: Bowel Sounds Present, Soft, Non Tender Extremities: No edema, Capillary Refill Less than 3 Seconds Skin: No rashes, No breakdown Musculoskeletal: No Tenderness to Palpation of Joints or Extremities Neurological: Cranial nerves II-XII grossly intact Psych/Mental Status: Normal Affect, Appropriate, Alert and oriented to time, place, person, mood and affect Laboratory Results 01/22/20 05:10: Iron 82, TIBC 563 H, Iron Saturation 14.6 L, Folate 13.70 01/22/20 05:10: Ferritin 134 01/22/20 17:56: Vitamin B12 463 01/23/20 05:58: WBC 8.8, RBC 3.36 L, Hgb 11.9 L, Hct 35.1 L, MCV 104.5 H, MCH 35.4 H, MCHC 33.9, RDW Std Deviation 53.3 H, RDW Coeff of Angel Luis 14.0, Plt Count 187, MPV 9.5, Immature Gran % (Auto) 0.500, Neut % (Auto) 78.9 H, Lymph % (Auto) 14.9 L, Eddy % (Auto) 5.1, Eos % (Auto) 0.3, Baso % (Auto) 0.3, Absolute Neuts (auto) 7.0, Absolute Lymphs (auto) 1.31, Nucleated RBC % 0 01/23/20 05:58: Sodium 137, Potassium 3.0 L, Chloride 104, Carbon Dioxide 20.0 L, Anion Gap 13, BUN 7, Creatinine 0.51 L, Estim Creat Clear Calc 101.93, Est GFR (MDRD) Af Amer 161, Est GFR (MDRD) Non-Af 133, BUN/Creatinine Ratio 13.7, Glucose 84, Calcium 8.2 L, Total Bilirubin 0.70, AST 36, ALT 26, Alkaline Phosphatase 129 H, Total Protein 7.1, Albumin 3.0 L, Globulin 4.1, Albumin/Globulin Ratio 0.7 L, Lipase 372 Current Medications Dicyclomine HCl (Bentyl) 20 mg PO Q6H PRN PRN PRN Reason: abdominal discomfort Enoxaparin Sodium (Lovenox) 40 mg SC DAILY [facility] Last Admin: 01/23/20 09:54 Dose: 40 mg Documented by: Folic Acid (Folic Acid) 1 mg PO DAILY@0800 [facility] Stop: 01/25/20 08:01 Last Admin: 01/23/20 09:54 Dose: 1 mg Documented by: Gabapentin (Neurontin) 300 mg PO Q8H PRN PRN PRN Reason: moderate to severe anxiety Hydralazine HCl (Apresoline Iv) 5 mg IV Q6H PRN PRN PRN Reason: SBP>160 Last Admin: 01/23/20 09:52 Dose: 5 mg Documented by: Hydroxyzine Pamoate (Vistaril Pamoate Capsule) 50 mg PO Q4H PRN PRN PRN Reason: mild anxiety Sodium Chloride () 1,000 mls @ 125 mls/hr IV .Q8H [facility] Last Infusion: 01/23/20 10:05 Dose: 125 mls/hr Documented by: Sodium Chloride () 250 mls @ 15 mls/hr IV .[id number] PRN PRN Reason: Saline Flush Sodium Chloride () 250 mls @ 15 mls/hr IV .[id number] PRN PRN Reason: Additional IVPB Infusion Pantoprazole Sodium 40 mg/ (Sodium Chloride) 110 mls @ 330 mls/hr IV Q12 [facility] Last Infusion: 01/23/20 10:05 Dose: Infused Documented by: Loperamide HCl (Imodium) 2 mg PO Q4H PRN PRN PRN Reason: LOOSE STOOLS Lorazepam (Ativan) 2 mg PO Q2H PRN PRN; Protocol PRN Reason: CIWA score > 8 but <15 Last Admin: 01/22/20 12:12 Dose: 2 mg Documented by: Lorazepam (Ativan) 2 mg PO UD PRN; Protocol PRN Reason: CIWA score >/=15. Lorazepam (Ativan) 2 mg IV Q2H PRN PRN; Protocol PRN Reason: CIWA score > 8 but <15 Last Admin: 01/22/20 15:12 Dose: 2 mg Documented by: Lorazepam (Ativan) 2 mg IV UD PRN; Protocol PRN Reason: CIWA score >/=15. Morphine Sulfate () 2 mg IV Q3H PRN PRN PRN Reason: severe pain 6-10/10 Last Admin: 01/23/20 09:49 Dose: 2 mg Documented by: Nicotine (Nicoderm Cq (Pbkc)) 21 mg TRANSDERM. DAILY [facility] Last Admin: 01/23/20 09:54 Dose: 21 mg Documented by: Ondansetron HCl (Zofran) 4 mg IV Q6H PRN PRN PRN Reason: NAUSEA/VOMITING Last Admin: 01/23/20 09:50 Dose: 4 mg Documented by: Oxycodone HCl (Oxyir) 5 mg PO Q4H PRN PRN PRN Reason: Pain Score 6-10/10 Phenobarbital (Phenobarbital) 97.2 mg PO Q4H [facility]; Taper Stop: 01/26/20 21:59 Last Admin: 01/23/20 09:49 Dose: 97.2 mg Documented by: Potassium Chloride (K-Dur) 40 meq PO BIDCM [facility] Stop: 01/25/20 08:18 Last Admin: 01/23/20 09:50 Dose: 40 meq Documented by: Promethazine HCl (Phenergan) 12.5 mg IV Q4H PRN PRN PRN Reason: NAUSEA/VOMITING Last Admin: 01/23/20 06:54 Dose: 12.5 mg Documented by: Sodium Chloride () 10 - 40 ml IV UD PRN PRN Reason: SALINE FLUSH Last Admin: 01/21/20 22:25 Dose: 10 ml Documented by: Thiamine HCl (Vitamin B1) 100 mg PO BIDCM [facility] Stop: 01/25/20 08:01 Last Admin: 01/23/20 09:54 Dose: 100 mg Documented by: Trazodone HCl (Desyrel) 100 mg PO QHS PRN PRN Reason: INSOMNIA Last Admin: 01/23/20 00:12 Dose: 100 mg Documented by: STROKE Vital Signs/Narrative: Vital Signs Temp Pulse Resp BP Pulse Ox 01/23/20 09:52 82 01/23/20 09:47 98.5 F 82 18 166/81 H 98 Medical Necessity - Tobacco Use Smoking Status: Current every day smoker Tobacco Use: Cigarettes Assessment/Plan All Active Problems Pancreatitis (Acute) Pancreatitis (Acute) Liver mass (Acute) Bowel wall thickening (Acute) Hypokalemia (Acute) 1. Alcoholic pancreatitis - phenobarb taper, 180 referral. Continue IV fluids and supportive care. Clear liquid diet. Replace K. Give thiamine/folate. CIWA protocol. Alk phos and AST improved. ALT normal. 2. Macrocytic anemia - mild. b12/folate normal. Iron normal, TIBC high, Iron sat low, ferritin normal. 3. HTN - prn hydralazine DVT ppx: lovenox DC plannin referral This patient was seen by Brayan Burr PA-C under the supervision of Doctor Chirag. <Shaheen Beard - Last Filed: 01/23/20 13:48> Reason for Visit: Acute pancreatitis and alcohol withdrawal syndrome. Objective: Patient is still nauseated. Had vomiting 2 times, first was bilious in nature yellow in color, moderate amount and second 1 very small. Patient complained of weird dream and sometimes hallucination. Still has tremors. Physical exam General: Alert, Oriented x3, Cooperative HEENT: Atraumatic, PERRLA, EOMI, Normocephalic Oral: No Gingival or Mucosal Lesions/ Ulcerations Neck: Supple, No JVD, Negative Carotid Bruits Lungs: Air entry diminished in bilateral lung bases. No crepitation/rhonchi Cardiovascular: Regular rate, Regular Rhythm, Normal S1, Normal S2, No murmurs Abdomen: Bowel Sounds Present, Soft, tenderness present in epigastrium and right upper quadrant. Voluntary guarding of upper abdominal muscles. No palpable mass. : No renal angle tenderness. No suprapubic tenderness. Extremities: No edema, Capillary Refill Less than 3 Seconds Skin: No rashes, No breakdown Musculoskeletal: No Tenderness to Palpation of Joints or Extremities Neurological: Cranial nerves II-XII grossly intact, Deep Tendon Reflexes 2+/4 and Symmetrical, Neuro grossly intact. Tremors in bilateral upper hand. Psych/Mental Status: Normal Affect, Appropriate. Vitals/I&O's: Vital Signs Temp Pulse Resp BP Pulse Ox 98.2 F 88 16 155/76 H 100 01/23/20 13:35 01/23/20 13:35 01/23/20 13:35 01/23/20 13:35 01/23/20 13:35 Oxygen Delivery Method Room Air Weight: 112 lb 14.027 oz Body Mass Index (BMI) 18.8 Intake and Output for Last 24 Hours 01/21/20 01/22/20 01/23/20 23:59 23:59 23:59 Intake Total 3663.58 / 3693.58 2094.42 / 2094.42 Output Total 100 / 100 Balance 3663.58 / 3693.58 / Laboratory Results 01/22/20 05:10: Iron 82, TIBC 563 H, Iron Saturation 14.6 L, Folate 13.70 01/22/20 05:10: Ferritin 134 01/22/20 17:56: Vitamin B12 463 01/23/20 05:58: WBC 8.8, RBC 3.36 L, Hgb 11.9 L, Hct 35.1 L, MCV 104.5 H, MCH 35.4 H, MCHC 33.9, RDW Std Deviation 53.3 H, RDW Coeff of Angel Luis 14.0, Plt Count 187, MPV 9.5, Immature Gran % (Auto) 0.500, Neut % (Auto) 78.9 H, Lymph % (Auto) 14.9 L, Eddy % (Auto) 5.1, Eos % (Auto) 0.3, Baso % (Auto) 0.3, Absolute Neuts (auto) 7.0, Absolute Lymphs (auto) 1.31, Nucleated RBC % 0 01/23/20 05:58: Sodium 137, Potassium 3.0 L, Chloride 104, Carbon Dioxide 20.0 L, Anion Gap 13, BUN 7, Creatinine 0.51 L, Estim Creat Clear Calc 101.93, Est GFR (MDRD) Af Amer 161, Est GFR (MDRD) Non-Af 133, BUN/Creatinine Ratio 13.7, Glucose 84, Calcium 8.2 L, Total Bilirubin 0.70, AST 36, ALT 26, Alkaline Phosphatase 129 H, Total Protein 7.1, Albumin 3.0 L, Globulin 4.1, Albumin/Globulin Ratio 0.7 L, Lipase 372 Current Medications Dicyclomine HCl (Bentyl) 20 mg PO Q6H PRN PRN PRN Reason: abdominal discomfort Enoxaparin Sodium (Lovenox) 40 mg SC DAILY [facility] Last Admin: 01/23/20 09:54 Dose: 40 mg Documented by: Folic Acid (Folic Acid) 1 mg PO DAILY@0800 [facility] Stop: 01/25/20 08:01 Last Admin: 01/23/20 09:54 Dose: 1 mg Documented by: Gabapentin (Neurontin) 300 mg PO Q8H PRN PRN PRN Reason: moderate to severe anxiety Hydralazine HCl (Apresoline Iv) 5 mg IV Q6H PRN PRN PRN Reason: SBP>160 Last Admin: 01/23/20 09:52 Dose: 5 mg Documented by: Hydroxyzine Pamoate (Vistaril Pamoate Capsule) 50 mg PO Q4H PRN PRN PRN Reason: mild anxiety Sodium Chloride () 1,000 mls @ 125 mls/hr IV .Q8H [facility] Last Admin: 01/23/20 13:38 Dose: 125 mls/hr Documented by: Sodium Chloride () 250 mls @ 15 mls/hr IV .[id number] PRN PRN Reason: Saline Flush Sodium Chloride () 250 mls @ 15 mls/hr IV .[id number] PRN PRN Reason: Additional IVPB Infusion Pantoprazole Sodium 40 mg/ (Sodium Chloride) 110 mls @ 330 mls/hr IV Q12 [facility] Last Infusion: 01/23/20 10:05 Dose: Infused Documented by: Loperamide HCl (Imodium) 2 mg PO Q4H PRN PRN PRN Reason: LOOSE STOOLS Lorazepam (Ativan) 2 mg PO Q2H PRN PRN; Protocol PRN Reason: CIWA score > 8 but <15 Last Admin: 01/22/20 12:12 Dose: 2 mg Documented by: Lorazepam (Ativan) 2 mg PO UD PRN; Protocol PRN Reason: CIWA score >/=15. Lorazepam (Ativan) 2 mg IV Q2H PRN PRN; Protocol PRN Reason: CIWA score > 8 but <15 Last Admin: 01/22/20 15:12 Dose: 2 mg Documented by: Lorazepam (Ativan) 2 mg IV UD PRN; Protocol PRN Reason: CIWA score >/=15. Morphine Sulfate () 2 mg IV Q3H PRN PRN PRN Reason: severe pain 6-10/10 Last Admin: 01/23/20 13:38 Dose: 2 mg Documented by: Nicotine (Nicoderm Cq (Pbkc)) 21 mg TRANSDERM. DAILY [facility] Last Admin: 01/23/20 09:54 Dose: 21 mg Documented by: Ondansetron HCl (Zofran) 4 mg IV Q6H PRN PRN PRN Reason: NAUSEA/VOMITING Last Admin: 01/23/20 09:50 Dose: 4 mg Documented by: Oxycodone HCl (Oxyir) 5 mg PO Q4H PRN PRN PRN Reason: Pain Score 6-10/10 Phenobarbital (Phenobarbital) 97.2 mg PO Q4H [facility]; Taper Stop: 01/26/20 21:59 Last Admin: 01/23/20 13:37 Dose: 97.2 mg Documented by: Potassium Chloride (K-Dur) 40 meq PO BIDCM [facility] Stop: 01/25/20 08:18 Last Admin: 01/23/20 09:50 Dose: 40 meq Documented by: Promethazine HCl (Phenergan) 12.5 mg IV Q4H PRN PRN PRN Reason: NAUSEA/VOMITING Last Admin: 01/23/20 13:37 Dose: 12.5 mg Documented by: Sodium Chloride () 10 - 40 ml IV UD PRN PRN Reason: SALINE FLUSH Last Admin: 01/21/20 22:25 Dose: 10 ml Documented by: Thiamine HCl (Vitamin B1) 100 mg PO BIDCM [facility] Stop: 01/25/20 08:01 Last Admin: 01/23/20 09:54 Dose: 100 mg Documented by: Trazodone HCl (Desyrel) 100 mg PO QHS PRN PRN Reason: INSOMNIA Last Admin: 01/23/20 00:12 Dose: 100 mg Documented by: STROKE Vital Signs/Narrative: Vital Signs Temp Pulse Resp BP Pulse Ox 01/23/20 13:35 98.2 F 88 16 155/76 H 100 01/23/20 09:52 82 01/23/20 09:47 98.5 F 82 18 166/81 H 98 Assessment/Plan This patient was seen in conjunction with Brayan RUBI. I have independently interviewed and examined the patient and reviewed pertinent history, examination findings, laboratory and plan of management. I have reviewed the note and agree with the documented findings with the few additional points. In brief, patient is admitted for acute on recurrent alcoholic pancreatitis along with acute alcohol withdrawal. [facility] medical chart reviewed. Lipase 93. Hemoglobin 13.9, leukocyte 9.1 thousand. Platelet count 263,000. CT abdomen from [facility] reported as cirrhosis with small amount of ascites and features of duodenitis, confluent hepatic fibrosis and 1.6 cm cystic lesion in the head of pancreas probably pseudocyst. 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 Started on Protonix 40 mg IV twice daily. H&H is stable. Hypokalemia. Magnesium and phosphorus normal. Potassium getting replaced. Patient has heavy alcohol use, tolerance and dependence. Started on phenobarbital along with other supportive medication for alcohol withdrawal medical stabilization. Consult 180 referral. [facility] protocol. 180 counseling was called and patient wanted to see later. Patient has chronic macrocytic anemia. Iron work-up is suggestive of iron deficiency anemia with iron saturation 14.6%. Folic acid normal. B12 463. Total time of the visit including total time spent in counseling or coordination of care, (more than 50% of the total time, spent in obtaining medical information from nurses and other ancillary care providers), manager social and housing case managerclinical informatics manager of labs and imaging is 30 minutes. I have discussed my assessment with Brayan RUBI and orders have been reviewed Inpatient E&M: 30256 Subs Hosp L3
--- NOTE | 2020-01-23 13:55 | CASEMGMT ---
Social Work Note SW in to speak with pt. SW introduced self and role at [facility]. Pt states that today she doesn't want to talk to Jadon today but may be agreeable to talking to Jadon tomorrow. SW informed pt that Jadon can come back and see pt tomorrow if she wants to. Pt states understanding, is agreeable to taking resources now to read and review. SW provided pt with resources again reiterated that Jadon can come back to speak with pt again tomorrow if she wishes. Pt states understanding. Per previous notes, Pt was seen by Jadon at pt's last visit to [facility] and was provided resources then as well. SW to remain available if additional needs arise. ALEXANDER will call Jadon if pt wishes to speak again to [facility]ad[facility]. Saba Chung ALARM TECHNICIAN, REAL ESTATE TRANSACTION MANAGER
--- NOTE | 2020-01-23 13:55 | CASEMGMT ---
Addendum entered by Saba Chung 01/23/20 14:12: It should be noted that when pt was asked about speaking to [facility] to both RN CM and this worker pt had stated ok, not today maybe tomorrow. Original Note: Social Work Note SW in to speak with pt. SW introduced self and role at [facility]. Pt states that today she doesn't want to talk to [facility] today but may be agreeable to talking to [facility] tomorrow. SW informed pt that Jadon can come back and see pt tomorrow if she wants to. Pt states understanding, is agreeable to taking resources now to read and review. SW provided pt with resources again reiterated that Jadon can come back to speak with pt again tomorrow if she wishes. Pt states understanding. Per previous notes, Pt was seen by Jadon at pt's last visit to [facility] and was provided resources then as well. SW to remain available if additional needs arise. SW will call [facility]. Saba Chung FURNACE COMBUSTION ANALYST, CLINICAL EVALUATOR
[2020-01-23] MEDS: 0.9% Saline Lock 10 ML Syringe IV (22:53)
[2020-01-24 00:37] VITALS: BP 158/83; PULSE 83; RESP 16; TEMP 37.4; O2SAT 97
--- NOTE | 2020-01-24 01:58 | NURSING ---
2100 Potassium pill found on patient's tray table. Pill discarded in [facility].
[2020-01-24] MEDS: Phenobarbital 32.4 MG Tablet 64.8 MG PO ×6 (02:56→22:43)
[2020-01-24] MEDS: Morphine 2 MG/ML Syringe IV ×5 (03:00→22:49)
[2020-01-24 05:50] LABS: Absolute Lymphocyte Count 1.61 X10^3/uL (0.83-4.51); Absolute Neutrophil Count 6.8 X10^3/uL (2.0-7.7); Basophil# 0.03 X10^3/uL; Basophil% 0.3 % (0-1); Eosinophil# 0.09 X10^3/uL; Hematocrit 33.5 % (37-47); Hemoglobin 11.8 g/dL (12.0-15.0); Lymphocyte # 1.61 X10^3/ul (4.0); Lymphocyte % 17.5 % (19-41); Mean Corp Hgb Conc 35.2 g/dL (32-36); Mean Corpuscular Hgb 36.1 pg (27.0-32.0); Mean Corpuscular Volume 102.4 fL (81-99); Mean Platelet Vol. 9.4 fl (6.2-12.0); Monocyte# 0.63 X10^3/uL; Monocyte% 6.8 % (0-10); NRBC Flagged by Analyzer 0 % (0-5); Neutrophil % 73.9 % (47-70); Platelet Count 167 K/mm3 (150-450); RBC Distribution Width SD 52.7 fl (35.1-43.9); Red Blood Count 3.27 M/mm3 (4.2-5.4); White Blood Count 9.2 K/mm3 (4.4-11.0)
[2020-01-24 06:08] VITALS: BP 145/83; PULSE 85; RESP 16; TEMP 37.7; O2SAT 98
[2020-01-24] MEDS: 0.9% Normal Saline 1,000 ML 125 ML IV ×3 (06:12→22:53)
[2020-01-24 06:23] LABS: Anion Gap 9 (5-15); BUN 5 mg/dL (7-18); BUN/Creat Ratio 11.2 RATIO (10-20); Calcium,Total 7.9 mg/dL (8.5-10.1); Chloride 104 mmol/L (98-107); Creatinine, Serum 0.45 mg/dL (0.55-1.02); EST Glomerular Filtration Rate 155 mL/min (>60); Est Glom Filt Rate - Afr Amer 188 mL/min (>60); Estimated Creatinine Clearance 115.52 ml/min; Glucose 83 mg/dL (74-106); Potassium 3.2 mmol/L (3.5-5.1); Sodium Level 136 mmol/L (136-145)
--- NOTE | 2020-01-24 08:29 | PCM.PN.HOSP ---
Reason for Visit: Pancreatitis Subjective: Patient is a 54-year-old lady with history of alcohol dependence admitted with abdominal pain and assessment of acute alcohol pancreatitis made Objective: GENERAL: cooperative HEENT: Atraumatic; EYES; Anicteric, Normal Conjunctiva NECK; supple, normal thyroid, RESPIRATORY: Diminished to auscultation CARDIOVASCULAR: Regular S1 S2, GI: soft, normoactive bowel sounds, : No Renal angle tenderness; EXTREMITIES: No edema, no clubbing, MUSCULOSKELETAL: no muscle waisting NEURO: Awake; no lateralizing signs. SKIN: No Rash PSYCH; Flat affect Vitals/I&O's: Vital Signs Temp Pulse Resp BP Pulse Ox 99.8 F H 85 16 145/83 H 98 01/24/20 06:08 01/24/20 06:08 01/24/20 06:08 01/24/20 06:08 01/24/20 06:08 Oxygen Delivery Method Room Air Weight: 51.2 kg Body Mass Index (BMI) 18.8 Intake and Output for Last 24 Hours 01/22/20 01/23/20 01/24/20 23:59 23:59 23:59 Intake Total 3663.58 / 3693.58 3555.42 / 3580.42 983.33 / 983.33 Output Total 100 / 100 Balance 3663.58 / 3693.58 3455.42 / 3480.42 983.33 / 983.33 Laboratory Results 01/24/20 05:30: WBC 9.2, RBC 3.27 L, Hgb 11.8 L, Hct 33.5 L, MCV 102.4 H, MCH 36.1 H, MCHC 35.2, RDW Std Deviation 52.7 H, RDW Coeff of Angel Luis 14.0, Plt Count 167, MPV 9.4, Immature Gran % (Auto) 0.500, Neut % (Auto) 73.9 H, Lymph % (Auto) 17.5 L, [place] % (Auto) 6.8, Eos % (Auto) 1.0, Baso % (Auto) 0.3, Absolute Neuts (auto) 6.8, Absolute Lymphs (auto) 1.61, Nucleated RBC % 0 01/24/20 05:30: Sodium 136, Potassium 3.2 L, Chloride 104, Carbon Dioxide 23.0, Anion Gap 9, BUN 5 L, Creatinine 0.45 L, Estim Creat Clear Calc 115.52, Est GFR (MDRD) Af Amer 188, Est GFR (MDRD) Non-Af 155, BUN/Creatinine Ratio 11.2, Glucose 83, Calcium 7.9 L Current Medications Dicyclomine HCl (Bentyl) 20 mg PO Q6H PRN PRN PRN Reason: abdominal discomfort Enoxaparin Sodium (Lovenox) 40 mg SC DAILY [facility] Last Admin: 01/23/20 09:54 Dose: 40 mg Documented by: Folic Acid (Folic Acid) 1 mg PO DAILY@0800 [facility] Stop: 01/25/20 08:01 Last Admin: 01/23/20 09:54 Dose: 1 mg Documented by: Gabapentin (Neurontin) 300 mg PO Q8H PRN PRN PRN Reason: moderate to severe anxiety Hydralazine HCl (Apresoline Iv) 5 mg IV Q6H PRN PRN PRN Reason: SBP>160 Last Admin: 01/23/20 22:51 Dose: 5 mg Documented by: Hydroxyzine Pamoate (Vistaril Pamoate Capsule) 50 mg PO Q4H PRN PRN PRN Reason: mild anxiety Sodium Chloride () 1,000 mls @ 125 mls/hr IV .Q8H [facility] Last Admin: 01/24/20 06:12 Dose: 125 mls/hr Documented by: Sodium Chloride () 250 mls @ 15 mls/hr IV .[id number] PRN PRN Reason: Saline Flush Sodium Chloride () 250 mls @ 15 mls/hr IV .[id number] PRN PRN Reason: Additional IVPB Infusion Pantoprazole Sodium 40 mg/ (Sodium Chloride) 110 mls @ 330 mls/hr IV Q12 [facility] Last Infusion: 01/23/20 23:30 Dose: Infused Documented by: Loperamide HCl (Imodium) 2 mg PO Q4H PRN PRN PRN Reason: LOOSE STOOLS Lorazepam (Ativan) 2 mg PO Q2H PRN PRN; Protocol PRN Reason: CIWA score > 8 but <15 Last Admin: 01/22/20 12:12 Dose: 2 mg Documented by: Lorazepam (Ativan) 2 mg PO UD PRN; Protocol PRN Reason: CIWA score >/=15. Lorazepam (Ativan) 2 mg IV Q2H PRN PRN; Protocol PRN Reason: CIWA score > 8 but <15 Last Admin: 01/22/20 15:12 Dose: 2 mg Documented by: Lorazepam (Ativan) 2 mg IV UD PRN; Protocol PRN Reason: CIWA score >/=15. Morphine Sulfate () 2 mg IV Q3H PRN PRN PRN Reason: severe pain 6-10/10 Last Admin: 01/24/20 03:00 Dose: 2 mg Documented by: Nicotine (Nicoderm Cq (Pbkc)) 21 mg TRANSDERM. DAILY [facility] Last Admin: 01/23/20 09:54 Dose: 21 mg Documented by: Ondansetron HCl (Zofran) 4 mg IV Q6H PRN PRN PRN Reason: NAUSEA/VOMITING Last Admin: 01/23/20 17:36 Dose: 4 mg Documented by: Oxycodone HCl (Oxyir) 5 mg PO Q4H PRN PRN PRN Reason: Pain Score 6-10/10 Phenobarbital (Phenobarbital) 64.8 mg PO Q4H [facility]; Taper Stop: 01/26/20 21:59 Last Admin: 01/24/20 06:11 Dose: 64.8 mg Documented by: Potassium Chloride (K-Dur) 40 meq PO BIDCM [facility] Stop: 01/25/20 08:18 Last Admin: 01/23/20 17:36 Dose: 40 meq Documented by: Promethazine HCl (Phenergan) 12.5 mg IV Q4H PRN PRN PRN Reason: NAUSEA/VOMITING Last Admin: 01/23/20 13:37 Dose: 12.5 mg Documented by: Sodium Chloride () 10 - 40 ml IV UD PRN PRN Reason: SALINE FLUSH Last Admin: 01/23/20 22:53 Dose: 10 ml Documented by: Thiamine HCl (Vitamin B1) 100 mg PO BIDCM [facility] Stop: 01/25/20 08:01 Last Admin: 01/23/20 17:36 Dose: 100 mg Documented by: Trazodone HCl (Desyrel) 100 mg PO QHS PRN PRN Reason: INSOMNIA Last Admin: 01/23/20 00:12 Dose: 100 mg Documented by: STROKE Vital Signs/Narrative: Vital Signs Temp Pulse Resp BP Pulse Ox 01/24/20 06:08 99.8 F H 85 16 145/83 H 98 Medical Necessity - Tobacco Use Smoking Status: Current every day smoker Tobacco Use: Cigarettes Assessment/Plan All Active Problems Pancreatitis (Acute) Pancreatitis (Acute) Liver mass (Acute) Bowel wall thickening (Acute) Hypokalemia (Acute) Patient is a 54-year-old lady with history of alcohol dependence admitted with abdominal pain and assessment of acute alcohol pancreatitis made 1. Acute alcoholic pancreatitis ?Admitted to regular nursing floor being managed conservatively with bowel rest pain meds IV fluids. Patient was started on clear liquid the day prior with plans advance diet to regular diet 01/24/2020 2. Hypokalemia -corrected per protocol 3. Chronic alcohol dependence ?Patient currently on phenobarb taper consultation has been placed 180 4. Essential hypertension ?Patient is on hydralazine 5. DVT prophylaxis ?Lovenox Inpatient E&M: 39887 Subs Hosp L2
[2020-01-24 09:40] VITALS: BP 154/88; PULSE 80; RESP 16; TEMP 36.4; O2SAT 98
[2020-01-24] MEDS: Folic Acid 1 MG Tablet PO (09:45)
[2020-01-24] MEDS: Enoxaparin 40 MG/0.4 ML Syringe SC (09:45)
[2020-01-24] MEDS: Thiamine Hydrochloride 100 MG Tablet PO ×2 (09:45→17:58)
--- NOTE | 2020-01-24 09:55 | CASEMGMT ---
Social Work Note SW in to speak with pt. SW asked pt if she would be agreeable to speaking with [facility] again today. Pt states she is agreeable to speaking to [facility]. SW placed a call to Freida at [facility] and left message that pt is agreeable to speaking with [facility]. Saba Chung SURGEON ASSISTANT, MANAGER FLIGHT
[2020-01-24] MEDS: Ondansetron 4 MG/2 ML Vial IV ×2 (13:20→19:21)
--- NOTE | 2020-01-24 13:49 | ADDICTION ---
This automotive service writer met with patient in her room, by her request. Patient refused discharge planning and assessment but was provided recovery literature and contact information for [facility].
[2020-01-24 14:00] VITALS: BP 133/69; PULSE 76; RESP 16; TEMP 36.7; O2SAT 97
[2020-01-24] MEDS: Dicyclomine 10 MG Capsule 20 MG PO (17:58)
[2020-01-24] MEDS: oxyCODONE 5 MG Tablet PO (19:29)
[2020-01-24 22:45] VITALS: BP 114/69; PULSE 78; RESP 18; TEMP 36.7; O2SAT 99
[2020-01-25] MEDS: oxyCODONE 5 MG Tablet PO (01:45)
[2020-01-25] MEDS: Ondansetron 4 MG/2 ML Vial IV (01:46)
[2020-01-25 01:55] VITALS: BP 119/73; PULSE 69; RESP 18; TEMP 36.4; O2SAT 100
[2020-01-25] MEDS: Phenobarbital 32.4 MG Tablet 64.8 MG PO ×2 (03:58→11:04)
[2020-01-25] MEDS: Morphine 2 MG/ML Syringe IV ×2 (03:59→08:25)
[2020-01-25 04:08] VITALS: BP 120/68; PULSE 69; RESP 18; TEMP 36.3; O2SAT 100
[2020-01-25] MEDS: 0.9% Normal Saline 1,000 ML 125 ML IV (07:41)
[2020-01-25] MEDS: Folic Acid 1 MG Tablet PO (07:50)
[2020-01-25] MEDS: Thiamine Hydrochloride 100 MG Tablet PO (07:50)
--- NOTE | 2020-01-25 08:13 | DCINST_ITS ---
You will use the following diet at home:: Full liquid - Advance to regular as tolerated Your food should be the consistency of: Mechanical soft (ground) Discharge Activity: May not drive while taking narcotic pain medications. Allergies/Adverse Reactions: Allergies No Known Allergies Allergy (Verified 12/03/19 14:19) Medications to take at Discharge Folic Acid 1 mg PO DAILY@0800 #30 tab 01/25/20 Oxycodone [Oxyir] 5 mg PO Q4H PRN PRN 4 Days #20 tablet 01/25/20 Pantoprazole Sodium [Protonix] 40 mg PO DAILY #30 tab 01/25/20 Potassium Chloride [K-Dur] 20 meq PO BIDCM #30 tab 01/25/20 Thiamine Hydrochloride [Vitamin B1] 100 mg PO DAILY #30 tab 01/25/20 hydrOXYzine pamoate capsule [Vistaril pamoate capsule] 50 mg PO Q4H PRN PRN #30 cap 01/25/20 The following prescriptions were given: Folic Acid 1 mg PO DAILY@0800 #30 tab Transmission Status: Pending to [facility] Potassium Chloride [K-Dur] 20 meq PO BIDCM #30 tab Transmission Status: Pending to [facility] Oxycodone [Oxyir] 5 mg PO Q4H PRN PRN 4 Days #20 tablet PRN Reason: Pain Score 6-10/10 Transmission Status: Sent to [facility] Pantoprazole Sodium [Protonix] 40 mg PO DAILY #30 tab Transmission Status: Pending to [facility] hydrOXYzine pamoate capsule [Vistaril pamoate capsule] 50 mg PO Q4H PRN PRN #30 cap PRN Reason: mild anxiety Transmission Status: Pending to [facility] Thiamine Hydrochloride [Vitamin B1] 100 mg PO DAILY #30 tab Transmission Status: Pending to [facility] Primary Care Physician: Care Physician,No Primary [Primary Care Provider] - Test Results: Test results from this visit will be discussed in further detail at your follow- up appointment, if applicable.
--- NOTE | 2020-01-25 08:15 | DS.PCM_ITS ---
Discharge Date and Diagnosis Date of Admission: 01/21/20 Date of Discharge: 01/25/20 - Primary Discharge Diagnosis Acute Problems: Acute Pancreatitis - Secondary Discharge Diagnosis Chronic Problems: Chronic Problems Alcohol abuse (Chronic) Hospital Course and Treatment Operations: None Summary of Care Provided: T Patient is a 54-year-old lady with history of alcohol dependence admitted with abdominal pain and assessment of acute alcohol pancreatitis made 1. Acute alcoholic pancreatitis ?Admitted to regular nursing floor being managed conservatively with bowel rest pain meds IV fluids. Patient was started on clear liquid the day prior with plans advance diet to regular diet 01/24/2020 -Patient was discharged home 3 days after her admission in stable condition 2. Hypokalemia -corrected per protocol -Rx was written on discharge 3. Chronic alcohol dependence ?Patient currently on phenobarb taper consultation has been placed 180 - declined follow-up with 180 as outpatient 4. Essential hypertension ?Patient is on hydralazine 5. DVT prophylaxis ?Lovenox - Physical Exam Vitals/I&O's: Vital Signs Temp Pulse Resp BP Pulse Ox 97.4 F L 69 18 120/68 100 01/25/20 04:08 01/25/20 04:08 01/25/20 04:08 01/25/20 04:08 01/25/20 04:08 Oxygen Delivery Method Room Air Weight: 51.2 kg Body Mass Index (BMI) 18.8 Intake and Output for Last 24 Hours 01/23/20 01/24/20 01/25/20 23:59 23:59 23:59 Intake Total 3555.42 / 3580.42 3440.00 / 3640.00 1500 / 1500 Output Total 100 / 100 Balance 3455.42 / 3480.42 3440.00 / 3640.00 1500 / 1500 General: Alert Lungs: Normal air movement Cardiovascular: Regular rate, Regular Rhythm Neurological: Neuro grossly intact Psych/Mental Status: Flat Affect Current Medications Dicyclomine HCl (Bentyl) 20 mg PO Q6H PRN PRN PRN Reason: abdominal discomfort Last Admin: 01/24/20 17:58 Dose: 20 mg Documented by: Enoxaparin Sodium (Lovenox) 40 mg SC DAILY KATHRYN Last Admin: 01/24/20 09:45 Dose: 40 mg Documented by: Gabapentin (Neurontin) 300 mg PO Q8H PRN PRN PRN Reason: moderate to severe anxiety Hydralazine HCl (Apresoline Iv) 5 mg IV Q6H PRN PRN PRN Reason: SBP>160 Last Admin: 01/23/20 22:51 Dose: 5 mg Documented by: Hydroxyzine Pamoate (Vistaril Pamoate Capsule) 50 mg PO Q4H PRN PRN PRN Reason: mild anxiety Sodium Chloride () 1,000 mls @ 125 mls/hr IV .Q8H [facility] Last Admin: 01/25/20 07:41 Dose: 125 mls/hr Documented by: Sodium Chloride () 250 mls @ 15 mls/hr IV .[id number] PRN PRN Reason: Saline Flush Sodium Chloride () 250 mls @ 15 mls/hr IV .[id number] PRN PRN Reason: Additional IVPB Infusion Pantoprazole Sodium 40 mg/ (Sodium Chloride) 110 mls @ 330 mls/hr IV Q12 [facility] Last Infusion: 01/24/20 23:30 Dose: Infused Documented by: Potassium Chloride () 10 meq in 100 mls @ 100 mls/hr IV BOLUS Q1H [facility] Stop: 01/25/20 12:59 Loperamide HCl (Imodium) 2 mg PO Q4H PRN PRN PRN Reason: LOOSE STOOLS Morphine Sulfate () 2 mg IV Q3H PRN PRN PRN Reason: severe pain 6-10/10 Last Admin: 01/25/20 03:59 Dose: 2 mg Documented by: Nicotine (Nicoderm Cq (Pbkc)) 21 mg TRANSDERM. DAILY [facility] Last Admin: 01/24/20 09:44 Dose: 21 mg Documented by: Ondansetron HCl (Zofran) 4 mg IV Q6H PRN PRN PRN Reason: NAUSEA/VOMITING Last Admin: 01/25/20 01:46 Dose: 4 mg Documented by: Oxycodone HCl (Oxyir) 5 mg PO Q4H PRN PRN PRN Reason: Pain Score 6-10/10 Last Admin: 01/25/20 01:45 Dose: 5 mg Documented by: Phenobarbital (Phenobarbital) 64.8 mg PO Q6H [facility]; Taper Stop: 01/26/20 21:59 Last Admin: 01/25/20 03:58 Dose: 64.8 mg Documented by: Potassium Chloride (K-Dur) 40 meq PO BIDCM [facility] Stop: 01/25/20 08:18 Last Admin: 01/25/20 07:50 Dose: 40 meq Documented by: Promethazine HCl (Phenergan) 12.5 mg IV Q4H PRN PRN PRN Reason: NAUSEA/VOMITING Last Admin: 01/23/20 13:37 Dose: 12.5 mg Documented by: Sodium Chloride () 10 - 40 ml IV UD PRN PRN Reason: SALINE FLUSH Last Admin: 01/23/20 22:53 Dose: 10 ml Documented by: Trazodone HCl (Desyrel) 100 mg PO QHS PRN PRN Reason: INSOMNIA Last Admin: 01/23/20 00:12 Dose: 100 mg Documented by: Discharge Activity: May not drive while taking narcotic pain medications. Home Medications: Medications to take at Discharge Folic Acid 1 mg PO DAILY@0800 #30 tab 01/25/20 Oxycodone [Oxyir] 5 mg PO Q4H PRN PRN 4 Days #20 tablet 01/25/20 Pantoprazole Sodium [Protonix] 40 mg PO DAILY #30 tab 01/25/20 Potassium Chloride [K-Dur] 20 meq PO BIDCM #30 tab 01/25/20 Thiamine Hydrochloride [Vitamin B1] 100 mg PO DAILY #30 tab 01/25/20 hydrOXYzine pamoate capsule [Vistaril pamoate capsule] 50 mg PO Q4H PRN PRN #30 cap 01/25/20 Following Prescriptions Were Given to Patient: Folic Acid 1 mg PO DAILY@0800 #30 tab Transmission Status: Pending to [facility] Potassium Chloride [K-Dur] 20 meq PO BIDCM #30 tab Transmission Status: Pending to [facility] Oxycodone [Oxyir] 5 mg PO Q4H PRN PRN 4 Days #20 tablet PRN Reason: Pain Score 6-10/10 Transmission Status: Sent to [facility] Pantoprazole Sodium [Protonix] 40 mg PO DAILY #30 tab Transmission Status: Pending to [facility] hydrOXYzine pamoate capsule [Vistaril pamoate capsule] 50 mg PO Q4H PRN PRN #30 cap PRN Reason: mild anxiety Transmission Status: Pending to [facility] Thiamine Hydrochloride [Vitamin B1] 100 mg PO DAILY #30 tab Transmission Status: Pending to [facility] Primary Care Physician: Care Physician,No Primary [Primary Care Provider] - Disposition: Home Minutes spent on discharge:: 35 Patient Condition:: Stable Medical Necessity - Tobacco Use Smoking Status: Current every day smoker Tobacco Use: Cigarettes Meaningful Use Info Meaningful Use Diagnoses (Choose all that apply): None applicable Inpatient E&M: 64472 Disch Hosp
[2020-01-25] MEDS: 0.9% Saline Lock 10 ML Syringe IV (08:25)
[2020-01-25 09:00] VITALS: BP 116/78; PULSE 82; RESP 18; TEMP 36.8; O2SAT 100
[2020-01-25] MEDS: Potassium Chloride 10mEq/100mL 10 MEQ/100 ML IV.SOLN. 100 MEQ IV BOLUS (09:54)
[2020-01-25] MEDS: Enoxaparin 40 MG/0.4 ML Syringe SC (09:55)
[2020-01-25 10:00] VITALS: BP 116/75; PULSE 82; RESP 18; TEMP 36.8; O2SAT 98
[2020-01-25 12:23] VITALS: BP 128/70; PULSE 67; RESP 18; TEMP 36.8; O2SAT 99
== END 2020-01-25 12:25 | disposition home or self-care (01) | DRG 282 ==
PROVIDERS: Internal Medicine; Physician Assistant; Admitting Provider Family Medicine; Visit Provider Internal Medicine
DX: K85.20 Alcohol induced acute pancreatitis without necrosis or infection (principal); F10.239 Alcohol dependence with withdrawal, unspecified; E87.6 Hypokalemia; I10 Essential (primary) hypertension; F17.210 Nicotine dependence, cigarettes, uncomplicated; D53.9 Nutritional anemia, unspecified; D50.9 Iron deficiency anemia, unspecified; K29.80 Duodenitis without bleeding; K74.60 Unspecified cirrhosis of liver; K74.0 Hepatic fibrosis; Y90.6 Blood alcohol level of 120-199 mg/100 ml
CPT/HCPCS: 36415; 80048; 80053; 82607; 82728; 82746; 83540; 83550; 83690; 83735; 84100; 85025; 99406; J1756; J7030; A4216; J2405

== ENCOUNTER 2020-04-08 15:38 | Emergency (ER) | payer MEDICAID, SELFPAY ==
[2020-01-21 22:02] VITALS: BMI 18.8
[2020-04-08 15:38] VITALS: BP 190/112; PULSE 107; RESP 17; TEMP 36.4; O2SAT 99; BMI 19.8
--- NOTE | 2020-04-08 16:22 | ED.DCSUM_ITS ---
History of Present Illness Chief Complaint: Abd Pain Informant: Patient Onset: Yesterday Context: Gradual Onset Timing: Continuous Current Severity: Moderate Maximum Severity: Moderate Narrative: The patient is a 54-year-old female with medical history significant for alcoholic pancreatitis, alcohol dependence, and ascites that presents to the emergency department with abdominal pain. The patient states that she has been having increasing pain for the past 24 hours. She states that she was diagnosed with ascites 2 months ago. She did see her primary care physician in [place]. She states that she was placed on Librium and oxycodone. She states that she was having some increasing pain and has not taken her medications. She did drink this morning. She states she really has no interest in detox at this time. She came here for acute symptom control. She has never had a paracentesis. She denies any fever. She denies any weight loss or night sweats. Prior similar symptoms: Yes Recent Illness/Hospitalization: Yes Past Medical History - Allergies and Home Meds Allergies/Adverse Reactions: Allergies No Known Allergies Allergy (Verified 04/08/20 15:41) Primary Care Physician: Care Physician,No Primary [Primary Care Provider] - Prior records reviewed: Yes Past Medical History: - - Pancreatitis, alcohol abuse Surgical History: - - Pancreatic abscesses drained ex lap 7 years ago at [facility] by Dr. Maciel Smoking Status: Current every day smoker - Family History Maternal Family History: Reports: No pertinent history Paternal Family History: Reports: Cancer - brain mets Review of Systems General: Denies: Chills, Fever, Sweats Eyes: Denies: Visual changes - bilaterally, Diplopia ENT: Denies: Rhinorrhea, Sore throat Cardiovascular: Denies: Chest pain, Palpitations Respiratory: Denies: Dyspnea, Cough, Dyspnea on exertion Gastrointestinal: Reports: Abdominal pain. Denies: Nausea, Vomiting, Diarrhea, Melena, Hematochezia Genitourinary: Denies: Dysuria, Hematuria, Frequency Musculoskeletal: Denies: Back pain, Extremity Pain Skin: Denies: Rash, Wounds Neurological: Denies: Headache, Weakness, Numbness Physical Exam Vital Signs/Narrative: Vital Signs Temp Pulse Resp BP Pulse Ox 04/08/20 15:38 97.6 F L 107 H 17 190/112 H 99 Inital Vital Signs reviewed: Yes General: Well nourished, Well developed, No Acute Distress Head: Normocephalic, Atraumatic Eyes: Perrl, EOMI ENT: Moist mucous membranes, No rhinorrhea Neck: Supple, Nontender Cardiovascular: Regular rate, Regular rhythm, No murmurs Respiratory: No distress, CTA bilaterally, Chest nontender Abdomen: Soft, Nondistended, Normal bowel sounds, Tender. Negative for: Guarding, Rebound tenderness Back: Nontender, Normal Inspection Extremities: Nontender, No edema Skin: Normal color, No rash Neurological: Alert, Oriented x3, Cranial nerves II-XII grossly intact, Normal Strength, Normal Sensation Psychological: Normal affect, Normal Mood Diagnostic/Tx/Re-eval Abnormal Lab Results 04/08/20 04/08/20 16:44 16:44 WBC 6.9 RBC 3.59 L Hgb 12.8 Hct 36.8 L MCV 102.5 H MCH 35.7 H MCHC 34.8 RDW Std Deviation 56.0 H RDW Coeff of Angel Luis 15.1 H Plt Count 105 L MPV 10.2 Immature Gran % (Auto) 0.400 Neut % (Auto) 68.1 Lymph % (Auto) 22.6 [place]cock % (Auto) 6.8 Eos % (Auto) 1.2 Baso % (Auto) 0.9 Absolute Neuts (auto) 4.7 Absolute Lymphs (auto) 1.56 Nucleated RBC % 0 Sodium 140 Potassium 2.8 L Chloride 106 Carbon Dioxide 24.0 Anion Gap 10 BUN 9 Creatinine 0.76 Estim Creat Clear Calc 72.41 Est GFR (MDRD) Af Amer 102 Est GFR (MDRD) Non-Af 85 BUN/Creatinine Ratio 11.9 Glucose 100 Calcium 8.8 Total Bilirubin 0.60 AST 225 H ALT 60 H Alkaline Phosphatase 250 H Total Protein 8.5 H Albumin 3.5 Globulin 5.0 H Albumin/Globulin Ratio 0.7 L Lipase 394 H - Medical Decision Making The patient presents with abdominal pain. She does have a history of ascites alcohol abuse, and pancreatitis. Her abdomen is soft mildly tender. She has no rebound or guarding. There is no significant fluid wave. IV was established. Patient was treated with analgesics and Ativan. Metabolic work-up does show some elevation of the liver functions. Her lipase is also mildly elevated. The patient has no interest in hospitalization or detox. She wants to attempt outpatient therapy. Given her mild pancreatitis, we will treat her with a short course of analgesics. I did counselor marriage and family her that if she wants to seek detox to return because it would be beneficial. Patient is hypokalemic and this is replaced. She will be discharged. Impression 1. Alcohol abuse 2. Pancreatitis ED Disposition - Plan for ED Patient: Instructions: ED Abdominal Pain Unkn Cause Fem Prescriptions: Potassium Chloride [Klor-Con M20] 20 meq PO BID #14 tab.er.prt Prescription Printed Oxycodone [Oxyir] 5 mg PO Q6H PRN PRN 2 Days #8 tab PRN Reason: Pain Score 1-3 Prescription Printed Referrals: Care Physician,No Primary [Primary Care Provider] -
[2020-04-08] MEDS: 0.9% Normal Saline 1,000 ML 125 ML IV (16:36)
[2020-04-08] MEDS: Ondansetron 4 MG/2 ML Vial IV (16:37)
[2020-04-08] MEDS: HYDROmorphone 1 MG/ML Syringe IV (16:37)
[2020-04-08] MEDS: LORazepam 1 MG Tablet PO (16:37)
[2020-04-08 17:03] LABS: Absolute Lymphocyte Count 1.56 X10^3/uL (0.83-4.51); Absolute Neutrophil Count 4.7 X10^3/uL (2.0-7.7); Basophil# 0.06 X10^3/uL; Basophil% 0.9 % (0-1); Eosinophil# 0.08 X10^3/uL; Eosinophils% 1.2 % (0-5); Hematocrit 36.8 % (37-47); Hemoglobin 12.8 g/dL (12.0-15.0); Lymphocyte # 1.56 X10^3/ul (4.0); Lymphocyte % 22.6 % (19-41); Mean Corp Hgb Conc 34.8 g/dL (32-36); Mean Corpuscular Hgb 35.7 pg (27.0-32.0); Mean Corpuscular Volume 102.5 fL (81-99); Mean Platelet Vol. 10.2 fl (6.2-12.0); Monocyte# 0.47 X10^3/uL; Monocyte% 6.8 % (0-10); NRBC Flagged by Analyzer 0 % (0-5); Neutrophil # 4.69 X10^3/uL (2.7-7.7); Neutrophil % 68.1 % (47-70); Platelet Count 105 K/mm3 (150-450); RBC Distribution Width CV 15.1 % (11.6-14.6); Red Blood Count 3.59 M/mm3 (4.2-5.4); White Blood Count 6.9 K/mm3 (4.4-11.0)
[2020-04-08 17:14] LABS: ALB/GLOB Ratio 0.7 RATIO (0.9-2.4); AST(SGOT) 225 U/L (15-37); Alanine Aminotransfer ALT/SGPT 60 U/L (13-56); Albumin, Serum 3.5 g/dL (3.2-5.0); Alkaline Phosphatase 250 U/L (45-117); Anion Gap 10 (5-15); BUN 9 mg/dL (7-18); BUN/Creat Ratio 11.9 RATIO (10-20); Calcium,Total 8.8 mg/dL (8.5-10.1); Chloride 106 mmol/L (98-107); Creatinine, Serum 0.76 mg/dL (0.55-1.02); EST Glomerular Filtration Rate 85 mL/min (>60); Est Glom Filt Rate - Afr Amer 102 mL/min (>60); Estimated Creatinine Clearance 72.41 ml/min; Glucose 100 mg/dL (74-106); Lipase 394 U/L (73-393); Potassium 2.8 mmol/L (3.5-5.1); Protein, Total 8.5 g/dL (6.4-8.2); Sodium Level 140 mmol/L (136-145)
== END 2020-04-08 18:05 | disposition home or self-care (01) ==
LOC: ED 16:58
PROVIDERS: Emergency Provider Emergency Medicine
DX: F10.10 Alcohol abuse, uncomplicated (principal); K85.90 Acute pancreatitis without necrosis or infection, unspecified; F17.200 Nicotine dependence, unspecified, uncomplicated
CPT/HCPCS: 80053; 83690; 85025; 96361; 96374; 96375; 99281; J7030; A4216; J2405